=== PATIENT | male | born 1940 | race Caucasian/White ===

== ENCOUNTER → 2020-02-28 10:33 | Outpatient (BNVA) | payer MEDICARE, OTHER, SELFPAY | PROVIDERS: Family Provider Nurse Practitioner; PCP Nurse Practitioner; Visit Provider Nurse Practitioner | DX: E03.8 Other specified hypothyroidism (principal); E11.65 Type 2 diabetes mellitus with hyperglycemia; Z79.4 Long term (current) use of insulin; I10 Essential (primary) hypertension; E78.2 Mixed hyperlipidemia; R39.11 Hesitancy of micturition | CPT/HCPCS: 80053; 80061; 83036; 84443 ==

== ENCOUNTER → 2020-07-23 10:14 | Outpatient (BNVA) | payer MEDICARE, OTHER, SELFPAY | PROVIDERS: Family Provider Nurse Practitioner; PCP Nurse Practitioner; Visit Provider Urology | DX: C67.8 Malignant neoplasm of overlapping sites of bladder; N40.1 Benign prostatic hyperplasia with lower urinary tract symptoms; R35.0 Frequency of micturition; C67.9 Malignant neoplasm of bladder, unspecified | CPT/HCPCS: 81001 ==

== ENCOUNTER → 2020-08-21 12:01 | Outpatient (BNVA) | payer MEDICARE, OTHER, SELFPAY | PROVIDERS: Family Provider Nurse Practitioner; PCP Nurse Practitioner; Visit Provider Nurse Practitioner | DX: E11.65 Type 2 diabetes mellitus with hyperglycemia (principal); Z79.4 Long term (current) use of insulin | CPT/HCPCS: 80053; 80061; 81000; 82043; 83036; 84443 ==

== ENCOUNTER → 2021-03-24 12:14 | Outpatient (BNVA) | payer MEDICARE, OTHER, SELFPAY | PROVIDERS: Family Provider Nurse Practitioner; PCP Nurse Practitioner; Visit Provider Family Medicine | DX: E03.8 Other specified hypothyroidism (principal); E11.65 Type 2 diabetes mellitus with hyperglycemia; E78.2 Mixed hyperlipidemia; I10 Essential (primary) hypertension; R39.11 Hesitancy of micturition; Z79.4 Long term (current) use of insulin | CPT/HCPCS: 80053; 80061; 83036; 84443; 85025 ==

== ENCOUNTER 2021-06-07 11:36 | Emergency (ER) | payer MEDICARE, OTHER, SELFPAY ==
[2021-06-07 11:52] VITALS: BP 158/64; PULSE 81; RESP 15; TEMP 36.8; O2SAT 95; BMI 27.1
--- NOTE | 2021-06-07 12:01 | ECG_ITS ---
[facility] Test Date: 2021-06-07 Pat Name: Norm Dee Department: Room: Gender: Male Clinical Team Lead: : 1940 Requested By: David Perla Order Number: [id number] Shirley MD: Marcus Siddiqui M.D. Measurements Intervals [place] Rate: 71 P: 28 ND: 149 QRS: -21 QRSD: 80 T: 28 QT: 373 QTc: 407 Interpretive Statements SINUS RHYTHM BORDERLINE LEFT AXIS DEVIATION [QRS AXIS < -20] LOW QRS VOLTAGE IN PRECORDIAL LEADS [QRS DEFLECTION < 1.0 mV IN CHEST LEADS] Compared to ECG 12/06/2017 13:18:47 No significant changes Electronically Signed On 06-08-2021 17:09:32 CDT by Marcus Siddiqui M.D. [id number]
[2021-06-07 12:26] VITALS: BP 115/62; PULSE 73; O2SAT 93
--- NOTE | 2021-06-07 12:30 | W.ED.WEAKNES ---
HPI - Weakness General: Chief complaint: Weakness Stated complaint: N/D WEAKNESS, POSS LOW O2 Time Seen by Provider: 06/07/21 11:59 History of Present Illness: HPI Narrative: 80-year-old male presents to the emergency room with planes of weakness and diarrhea generalized fatigue is also a little bit of cough and shortness of breath low-grade fever at home somewhat confused cannot really answer too many questions he denies chest pain does have a history of diabetes mellitus. Not previously been known to have Covid nor is he been vaccinated. MD Complaint: generalized weakness Onset (ago): day(s) Duration: constant Location: generalized Severity: moderate Relieving factors: none Exacerbating factors: none Associated symptoms: Reports decreased appetite, fever(s), myalgias, nausea and short of breath; Denies chest pain, chills, confusion, melena, diaphoresis, dysuria, easy bruising, headache(s), rash, syncope or vomiting Review of Systems Const: Reports: fever(s); Denies: chills or diaphoresis ENMT: Denies: throat pain, ear or mastoid pain, nasal discharge or nasal congestion Card: Denies: chest pain or syncope Resp: Denies: dyspnea, productive cough or non-productive cough GI: Reports: nausea; Denies: vomiting or melena : Denies: dysuria Skin/Breast: Denies: rash or pruritus Neuro: Denies: headache(s) or confusion Micha/Lymph: Denies: easy bruising PFS ED PFSH: Medical History (Updated 06/07/21 @ 15:22 by David Agrawal DO) Adult onset hypothyroidism Benign prostatic hyperplasia with lower urinary tract symptoms Controlled type 2 diabetes mellitus with hyperglycemia, with long-term current use of insulin HTN, goal below 130/80 Malignant neoplasm of overlapping sites of bladder Mixed hyperlipidemia Urinary hesitancy Surgical History History of bladder surgery History of cataract surgery History of hernia repair History of laminectomy Family History Other Cancer Diabetes Hypertension Denies family history of Bleeding disorder Social History Smoking and tobacco status: former smoker Second hand smoke exposure: No Smoking risk assessment/counseling performed?: No Alcohol intake: never Desire information about alcohol rehabilitation?: No Counseling given: No Desire information about substance/drug rehabilitation?: No Counseling given: No Caregiver/support person: No Lives independently: Yes Household members: none Housing: House Marital status: / Current occupational status: retired History of recent travel: No Current gender identity: Male Physical Exam Const: COMMON NORMALS: no acute distress GENERAL APPEARANCE: cooperative and comfortable HENMT: COMMON NORMALS: normocephalic, atraumatic and hearing grossly normal bilaterally HEAD & SCALP: normocephalic and atraumatic Neck/C-Spine: COMMON NORMALS: no JVD Resp: COMMON NORMALS: normal respiratory effort, No retractions, No use of accessory muscles and clear to auscultation bilaterally AUSCULTATION: clear to auscultation bilaterally Cardio: COMMON NORMALS: no JVD, regular rate, regular rhythm and No murmurs present (Cardio) RATE: regular rate RHYTHM: regular rhythm GI: COMMON NORMALS: Soft to palpation and No hepatosplenomegaly present AUSCULTATION: Yes normoactive bowel sounds PALPATION: Yes Soft to palpation, No Tenderness to palpation present (GI), No Guarding due to palpation present (GI) and Yes No hepatosplenomegaly present Extremity: COMMON NORMALS: normal to inspection, capillary refill normal, no clubbing, cyanosis or edema, no calf tenderness and no pedal edema Skin: COMMON NORMALS: no rashes or lesions noted GENERAL SKIN EXAM: no rashes or lesions noted Course Vital Signs: Vital signs: Vital Signs Temperature 98.3 F 06/07/21 11:52 Pulse Rate 73 06/07/21 12:26 Respiratory Rate 15 06/07/21 11:52 Blood Pressure 115/62 06/07/21 12:26 Pulse Oximetry 93 06/07/21 12:26 MDM - Weakness MDM Narrative: Medical decision making narrative: 80 patient has cystitis as well as a left lower lobe infiltrate and still somewhat suspicious of Covid given his onset with diarrhea. We will get a PCR is rapid antigen was negative he is already monitoring his home O2 sats. We will start him on Levaquin which should cover both pneumonia and cystitis if the pneumonia happens to be bacterial. We will contact her when we get his Covid result back any worsening problems return. Lab Data: Labs: Lab Results 06/07/21 06/07/21 06/07/21 Range/Units 12:39 12:39 12:39 WBC 3.1 L (4.0-10.0) 10^3/ uL RBC 4.86 (4.1-5.3) 10^6/u L Hgb 14.3 (11.7-16.6) g/dL Hct 44.1 (42.0-52.0) % MCV 90.7 (80-94) fL MCH 29.4 (28.0-34.0) pg MCHC 32.4 (30.0-36.0) g/dL RDW 14.8 (12.1-15.1) % Plt Count 119 L (130-400) 10^3/c mm MPV 10.2 (7.4-10.4) fL Neut % (Auto) 65.8 % Lymph % (Auto) 25.6 % [place] % (Auto) 8.0 % Eos % (Auto) 0.0 % Baso % (Auto) 0.3 % Neut # (Auto) 2.05 (1.8-7.7) 10^3/u L Lymph # (Auto) 0.8 (0.8-4.8) 10^3/u L [place] # (Auto) 0.3 (0.2-0.9) 10^3/u L Eos # (Auto) 0.0 (0.0-0.8) 10^3/u L Baso # (Auto) 0.0 (0.0-0.1) 10^3/u L Nucleated RBC % (a uto) 0 % Nucleated RBCs # 0.0 /100WBC Sodium 134 L (136-145) mmol/L Potassium 4.2 (3.5-5.1) mmol/L Chloride 98 (98-107) mmol/L Carbon Dioxide 23 (22-29) mmol/L Anion Gap 17.2 (5-19) BUN 31 H (8-23) mg/dL Creatinine 1.7 H (0.7-1.2) mg/dL GFR Calculation Not Reportable Glucose 175 H (65-115) mg/dL Calculated Osmolal ity 289 (285-295) mOsm/k g Lactic Acid 1.1 (0.5-2.2) mmol/L Calcium 8.2 L (8.5-10.5) mg/dL Total Bilirubin 0.5 (0.15-1.2) mg/dL AST 37 (0-40) U/L ALT 23 (0-41) U/L Alkaline Phosphata se 60 (40-130) IU/L Creatine Kinase 141 (39-308) U/L Total Protein 7.1 (6.6-8.7) g/dL Albumin 3.7 (3.5-5.2) g/dL Globulin 3.4 (1.3-4.6) g/dL Lipase 90 H (13-60) U/L Urine Color (Yellow) Urine Appearance (CLEAR) Urine pH (5-7) Ur Specific Gravit y (1.005-1.030) Urine Protein (Negative) Urine Glucose (UA) (Normal) Urine Ketones (Negative) Urine Blood (Negative) Urine Nitrate (Negative) Urine Bilirubin (Negative) Urine Urobilinogen (Negative) mg/dL Ur Leukocyte Komal ase (Negative) Urine RBC (0-2) /hpf Urine WBC (0-5) /hpf Ur Squamous Epith Cells (0-5) /hpf Amorphous Sediment Urine Bacteria (NONE) /hpf SARS-CoV-2 Ag (Rap id) (Negative) 06/07/21 06/07/21 Range/Units 12:39 12:55 WBC (4.0-10.0) 10^3/ uL RBC (4.1-5.3) 10^6/u L Hgb (11.7-16.6) g/dL Hct (42.0-52.0) % MCV (80-94) fL MCH (28.0-34.0) pg MCHC (30.0-36.0) g/dL RDW (12.1-15.1) % Plt Count (130-400) 10^3/c mm MPV (7.4-10.4) fL Neut % (Auto) % Lymph % (Auto) % [place] % (Auto) % Eos % (Auto) % Baso % (Auto) % Neut # (Auto) (1.8-7.7) 10^3/u L Lymph # (Auto) (0.8-4.8) 10^3/u L [place] # (Auto) (0.2-0.9) 10^3/u L Eos # (Auto) (0.0-0.8) 10^3/u L Baso # (Auto) (0.0-0.1) 10^3/u L Nucleated RBC % (a uto) % Nucleated RBCs # /100WBC Sodium (136-145) mmol/L Potassium (3.5-5.1) mmol/L Chloride (98-107) mmol/L Carbon Dioxide (22-29) mmol/L Anion Gap (5-19) BUN (8-23) mg/dL Creatinine (0.7-1.2) mg/dL GFR Calculation Glucose (65-115) mg/dL Calculated Osmolal ity (285-295) mOsm/k g Lactic Acid (0.5-2.2) mmol/L Calcium (8.5-10.5) mg/dL Total Bilirubin (0.15-1.2) mg/dL AST (0-40) U/L ALT (0-41) U/L Alkaline Phosphata se (40-130) IU/L Creatine Kinase (39-308) U/L Total Protein (6.6-8.7) g/dL Albumin (3.5-5.2) g/dL Globulin (1.3-4.6) g/dL Lipase (13-60) U/L Urine Color Yellow (Yellow) Urine Appearance Sl hazy (CLEAR) Urine pH 5 (5-7) Ur Specific Gravit y 1.020 (1.005-1.030) Urine Protein 2+ H (Negative) Urine Glucose (UA) Norm (Normal) Urine Ketones Negative (Negative) Urine Blood 2+ H (Negative) Urine Nitrate Positive H (Negative) Urine Bilirubin Neg (Negative) Urine Urobilinogen Norm (Negative) mg/dL Ur Leukocyte Komal ase Trace H (Negative) Urine RBC 0-4 H (0-2) /hpf Urine WBC 25-40 H (0-5) /hpf Ur Squamous Epith Cells 0-4 H (0-5) /hpf Amorphous Sediment Not Reportable Urine Bacteria 3+ H (NONE) /hpf SARS-CoV-2 Ag (Rap id) Negative (Negative) Discharge Plan Discharge Patient Disposition: Home Clinical Impression: Pneumonia, Cystitis, Suspected 2019-nCoV infection Condition: Stable Prescriptions: New levofloxacin 500 mg tablet 500 mg PO DAILY 7 Days RF: 0 No Action (DME) FreeStyle Lite Strips Strip See Rx Instructions .ROUTE .MEDSUPPLY Qty: 100 RF: 5 metoprolol succinate 50 mg tablet extended release 24 hr 50 mg PO QAM RF: 0 glipizide 10 mg tablet extended release 24hr 10 mg PO QAM RF: 0 tamsulosin 0.4 mg capsule 0.4 mg PO QAM RF: 0 lisinopril 5 mg tablet 5 mg PO QAM RF: 0 levothyroxine 112 mcg tablet 112 mcg PO QAM RF: 0 Crestor 40 mg tablet 40 mg PO QAM RF: 0 Levemir FlexTouch U-100 Insuln 100 unit/mL (3 mL) insulin pen 32 unit SUBCUT QAM RF: 0 Discharge Orders: Discharge ED (Routine); Ordered 06/07/21 Ordered By: David Agrawal Discharge Diet: As Directed Patient Instructions: Opioid Safety Activity Restrictions/Additional Instructions: You were tested for COVID-19. We still suspect you may have it. Monitor your home oxygen saturations if they are consistently below 90% return to the emergency room. Start on oral antibiotic given for the cystitis as well. Coding Level of Care Code ED Meteorological Engineer for Katia Fwanalilia Exam Comprehensive
[2021-06-07 12:47] LABS: Basophils % 0.3 %; Hematocrit 44.1 % (42.0-52.0); Hemoglobin 14.3 g/dL (11.7-16.6); Lymphocytes # 0.8 10^3/uL (0.8-4.8); Lymphocytes % 25.6 %; Mean Corpuscular HGB Conc 32.4 g/dL (30.0-36.0); Mean Corpuscular Hemoglobin 29.4 pg (28.0-34.0); Mean Corpuscular Volume 90.7 fL (80-94); Mean Platelet Volume 10.2 fL (7.4-10.4); Monocytes # 0.3 10^3/uL (0.2-0.9); Neutrophils # 2.05 10^3/uL (1.8-7.7); Neutrophils % 65.8 %; Nucleated Red Blood Cells % 0 %; Platelet Count 119 10^3/cmm (130-400); Red Blood Count 4.86 10^6/uL (4.1-5.3); Red Cell Distribution Width 14.8 % (12.1-15.1); White Blood Count 3.1 10^3/uL (4.0-10.0)
--- NOTE | 2021-06-07 13:08 | XRR_ITS ---
PROCEDURE INFORMATION: Exam: XR Chest Exam date and time: 06/07/2021 1:08 PM Age: 80 years old Clinical indication: Cough and dyspnea; Additional info: Dyspnea/cough TECHNIQUE: Imaging protocol: XR of the chest. Views: 1 view. COMPARISON: CR Chest 1 [place] [id number] 11/13/2017 9:10 PM FINDINGS: Lungs: Left basilar opacity. Pleural spaces: Unremarkable. No pleural effusion. No pneumothorax. Heart/Mediastinum: Unremarkable. No cardiomegaly. Vasculature: Atherosclerotic calcifications at the aortic arch noted. 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 XR/XR chest 1V portable [id number] IMPRESSION: Left basilar opacity suspicious for pneumonia. Nonemergent radiographic follow-up to resolution is suggested to ensure resolution.
[2021-06-07 13:11] LABS: Add Urine Microscopic? YES; Bilirubin Urine Neg (Negative); Blood Urine 2+ (Negative); Glucose Urine UA Norm (Normal); Ketones Urine Negative (Negative); Leukocyte Esterase Urine Trace (Negative); Nitrate Urine Positive (Negative); Protein Urine 2+ (Negative); Urine Appearance SL Hazy (CLEAR); Urine Color Yellow (Yellow); Urobilinogen Urine Norm (Negative); pH Urine 5 (5-7)
[2021-06-07 13:25] LABS: Add Urine Culture? Yes; Bacteria Urine 3+ /hpf; RBC Urine 0-4 /hpf (0-2); Squamous Epithelial Cell Urine 0-4 /hpf (0-5); WBC Urine 25-40 /hpf (0-5)
[2021-06-07 13:26] LABS: Lactic Sepsis W/Reflex 1.1 mmol/L (0.5-2.2)
[2021-06-07 13:28] LABS: Alanine Aminotransferase 23 U/L (0-41); Albumin Level 3.7 g/dL (3.5-5.2); Alkaline Phosphatase 60 IU/L (40-130); Anion Gap 17.2 (5-19); Aspartate Amino Transferase 37 U/L (0-40); Blood Urea Nitrogen 31 mg/dL (8-23); Calcium 8.2 mg/dL (8.5-10.5); Carbon Dioxide 23 mmol/L (22-29); Chloride 98 mmol/L (98-107); Creatine Phosphokinase 141 U/L (39-308); Globulin 3.4 g/dL (1.3-4.6); Glucose 175 mg/dL (65-115); Lipase 90 U/L (13-60); Osmolality Calculated 289 mOsm/kg (285-295); Potassium 4.2 mmol/L (3.5-5.1); SARS Covid-2 Antigen Negative (Negative); Sodium 134 mmol/L (136-145); Total Bilirubin 0.5 mg/dL (0.15-1.2); Total Protein 7.1 g/dL (6.6-8.7)
--- NOTE | 2021-06-07 13:42 | PC.PHAR ---
pt states he takes care of his own medications-pt states he takes something over the counter but is unsure what it is-pt states he only takes his medication in the am-pt states he is suppose to take flomax 0.4mg bid but states she just takes 0.4mg qam
== END 2021-06-07 15:40 | disposition home or self-care (01) ==
PROVIDERS: Emergency Provider Family Medicine
DX: J18.9 Pneumonia, unspecified organism (principal); N30.90 Cystitis, unspecified without hematuria; Z20.822 Contact with and (suspected) exposure to COVID-19; Z79.4 Long term (current) use of insulin; E11.9 Type 2 diabetes mellitus without complications; I10 Essential (primary) hypertension; E78.2 Mixed hyperlipidemia; Z85.51 Personal history of malignant neoplasm of bladder; Z87.891 Personal history of nicotine dependence
CPT/HCPCS: 71045; 80053; 81001; 82550; 83605; 83690; 85025; 87077; 87086; 87186; 87426; 93005; 99283

== ENCOUNTER 2021-06-09 16:09 | Inpatient (IN) | payer MEDICARE, OTHER, SELFPAY ==
[2021-06-09 16:53] VITALS: BP 128/71; PULSE 77; RESP 18; TEMP 36.5; O2SAT 94; BMI 27.1
[2021-06-09 19:56] VITALS: BP 107/75; PULSE 66; RESP 16; TEMP 36.5; O2SAT 95
--- NOTE | 2021-06-09 19:57 | PC.PHAR ---
PT STATED THAT HE TOOK ALL OF HIS MEDICATION TODAY; HOWEVER, HIS FAMILY MEMBER WAS WITH HIM AND HE STATED TO ME THAT HE IS NOT REALLY SURE WHETHER HE TOOK HIS MEDICATION CORRECTLY TODAY OR NOT. HE DOESN'T THINK THE PT WAS TAKING HIS ANTIBIOTIC CORRECTLY EVERY DAY.
[2021-06-09 20:55] VITALS: BP 118/66; PULSE 81; RESP 22; TEMP 37.1; O2SAT 93
--- NOTE | 2021-06-09 20:59 | ECG_ITS ---
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 Measurements Intervals [place] Rate: 65 P: 39 [place]: 154 QRS: -35 QRSD: 83 T: 40 QT: 415 QTc: 433 Interpretive Statements SINUS RHYTHM MARKED LEFT AXIS DEVIATION [QRS AXIS < -30] Poor R wave progression LOW QRS VOLTAGE IN PRECORDIAL LEADS [QRS DEFLECTION < 1.0 mV IN CHEST LEADS] Compared to ECG 06/07/2021 12:07:44 No significant changes Electronically Signed On 06-11-2021 0:29:23 CDT by Michael Meraz M.D. [id number]
--- NOTE | 2021-06-09 21:00 | ED_ITS ---
HPI - Male Genitourinary General: Chief complaint: ER Hold Stated complaint: UTI COMPLICATIONS/UNABLE TO WALK/TROUBLE EATING Time Seen by Provider: 06/09/21 20:39 History of Present Illness: HPI Narrative: Patient is an 80-year-old male comes to the ED with generalized fatigue and weakness. Patient has a past medical history of hypertension, type 2 diabetes, BPH, hypothyroidism And hyperlipidemia. Patient was diagnosed with a UTI approximately 5 days ago and sent home on levofloxacin. Patient has been taking his levofloxacin as directed. Patient's grandson is here as well and is helping provide history. Patient is very independent and lives at home by himself. Grandson said he is very active and he seems to be getting worse over the past couple days. Grandson said patient has not had an appetite and he has only seen patient eat maybe a couple 100 bri worth of food over the past 3 days. Patient says he just does not have an appetite. He describes his weakness is generalized and says his legs and body feels really heavy. Grandson says over the past couple days patient has seemed very weak and can hardly get up and move around. Denies any nausea/vomiting, fevers, chills, chest pain, shortness of breath, abdominal pain, bladder or bowel symptoms. Associated symptoms: Deny dysuria, hematuria, nausea or vomiting Review of Systems Const: Reports: fatigue (generalized weakness); Denies: fever(s) or chills Eyes: Denies: change in vision or eye discomfort ENMT: Denies: throat pain, odynophagia, nasal discharge or nasal congestion Card: Denies: chest pain, palpitations, edema, swelling of feet/ankles, dyspnea on exertion or orthopnea Resp: Denies: dyspnea, productive cough or non-productive cough GI: Denies: abdominal pain, nausea, vomiting, diarrhea, constipation or hem atochezia : Denies: flank pain, difficulty urinating, dysuria or hematuria Musc: Denies: neck pain, back pain or extremity swelling Skin/Breast: Denies: rash or new lesions Neuro: Reports: confusion; Denies: headache(s), numbness in extremities or weakness in extremities PFS ED PFSH: Medical History Adult onset hypothyroidism Benign prostatic hyperplasia with lower urinary tract symptoms Controlled type 2 diabetes mellitus with hyperglycemia, with long-term current use of insulin HTN, goal below 130/80 Malignant neoplasm of overlapping sites of bladder Mixed hyperlipidemia Urinary hesitancy Surgical History History of bladder surgery History of cataract surgery History of hernia repair History of laminectomy Family History Other Cancer Diabetes Hypertension Denies family history of Bleeding disorder Social History Smoking and tobacco status: former smoker Second hand smoke exposure: No Smoking risk assessment/counseling performed?: No Alcohol intake: never Desire information about alcohol rehabilitation?: No Counseling given: No Desire information about substance/drug rehabilitation?: No Counseling given: No Caregiver/support person: No Lives independently: Yes Household members: none Housing: House Marital status: / Current occupational status: retired History of recent travel: No Current gender identity: Male Physical Exam Const: COMMON NORMALS: alert GENERAL APPEARANCE: lethargic ORIENTATION/CONSCIOUSNESS: Yes oriented to person and Yes lethargic; not oriented to place and not oriented to time HENMT: COMMON NORMALS: normocephalic HEAD & SCALP: normocephalic MOUTH: Normal oral and palatal mucosa present THROAT: posterior oropharynx normal and uvula midline Eye: COMMON NORMALS: Equal, round and reactive pupils present PUPIL: Yes Equal, round and reactive pupils present Neck/C-Spine: COMMON NORMALS: supple GENERAL: Yes normal visual inspection Resp: COMMON NORMALS: normal respiratory effort, No retractions, No use of accessory muscles and clear to auscultation bilaterally AUSCULTATION: clear to auscultation bilaterally Cardio: COMMON NORMALS: regular rate, regular rhythm, S1 normal heart sound present, S2 normal heart sound present, No gallops present (Cardio), No clicks present (Cardio), No murmurs present (Cardio) and Peripheral pulses 2+ throughout RATE: regular rate RHYTHM: regular rhythm HEART SOUNDS: S1 normal heart sound present and S2 normal heart sound present PERIPHERAL PULSES: Peripheral pulses 2+ throughout GI: COMMON NORMALS: Normal to inspection, nondistended, normoactive bowel sounds present, Soft to palpation, non-tender and no masses PALPATION: Yes Soft to palpation : COMMON NORMALS: Yes no CVA tenderness BLADDER/KIDNEY EXAM: Yes no CVA tenderness Back/Pelvis: COMMON NORMALS: no CVA tenderness Extremity: COMMON NORMALS: normal to inspection Neuro: COMMON NORMALS: moves all extremities SENSORIUM/ORIENTATION: Yes alert, Yes oriented to person, No oriented to place, No oriented to time and Yes lethargic SPEECH: speech normal GAIT: Yes Other gait observations present (nurse assisted pt to bathroom-reports he is very unsteady/ weak) Skin: GENERAL SKIN EXAM: dry skin Course Consultations: Consultation #1: Contacted Dr. Ryder told her about patient case. She thought of patient was seen to be admitted they could not be admitted on observation other than would need to be admitted to the hospital for a more thorough work-up. Vital Signs: Vital signs: Vital Signs Temperature 98.7 F 06/09/21 20:55 Pulse Rate 51 L 06/09/21 23:00 Respiratory Rate 16 06/09/21 23:00 Blood Pressure 114/69 06/09/21 23:00 Pulse Oximetry 94 06/09/21 23:00 MDM - Male MDM Narrative: Medical decision making narrative: Patient is an 80-year-old male comes to the ED with generalized weakness, fatigue and confusion. Patient has a past medical history of hypertension, type 2 diabetes with controlled with insulin and BPH. Patient was seen here in the ED on June 07 diagnosed with a UTI and sent home on levofloxacin. Patient lives at home alone and does not have somebody who can be at his house constantly for the next couple days. Here in the ED patient appears a little lethargic and confused. He was alert and oriented to person, but struggles answering place and time questions. Rest of a exam was benign. Vitals were stable. Patient's glucose is checked and it was 48. Patient was given 1 g of glucagon and drank some juice. His blood sugar then went up around 101. CBC was unremarkable. Patient's glucose was 40 and creatinine was 1.8 but it was 1.7 when checked back on June 07. Rest of CMP was unremarkable. Chest x-ray showed some Persistent mild left basilar opacity concerning for pneumonia. EKG showed normal sinus rhythm with no ST segment elevation or depression noted. Troponins negative. CT of head showed no acute findings. I talked with Dr. Saldana about patient case and he felt patient needs to be admitted or at least on observation. I contacted Dr. Steven and she recommended patient not be placed on obs and admitted to Hospital. We currently have pt on hold here in the ED until bed opens up in hospital. Lab Data: Labs: Lab Results 06/09/21 06/09/21 06/09/21 Range/Units 20:51 21:02 21:09 WBC 3.5 L (4.0-10.0) 10^3/ uL RBC 4.97 (4.1-5.3) 10^6/u L Hgb 14.4 (11.7-16.6) g/dL Hct 44.9 (42.0-52.0) % MCV 90.3 (80-94) fL MCH 29.0 (28.0-34.0) pg MCHC 32.1 (30.0-36.0) g/dL RDW 14.9 (12.1-15.1) % Plt Count 135 (130-400) 10^3/c mm MPV 10.4 (7.4-10.4) fL Neut % (Auto) 71.9 % Lymph % (Auto) 18.8 % [place] % (Auto) 9.0 % Eos % (Auto) 0.0 % Baso % (Auto) 0.0 % Neut # (Auto) 2.49 (1.8-7.7) 10^3/u L Lymph # (Auto) 0.7 L (0.8-4.8) 10^3/u L [place] # (Auto) 0.3 (0.2-0.9) 10^3/u L Eos # (Auto) 0.0 (0.0-0.8) 10^3/u L Baso # (Auto) 0.0 (0.0-0.1) 10^3/u L Nucleated RBC % (a uto) 0 % Nucleated RBCs # 0.0 /100WBC Sodium (136-145) mmol/L Potassium (3.5-5.1) mmol/L Chloride (98-107) mmol/L Carbon Dioxide (22-29) mmol/L Anion Gap (5-19) BUN (8-23) mg/dL Creatinine (0.7-1.2) mg/dL GFR Calculation Glucose (65-115) mg/dL POC Glucose 48 L (70-110) mg/dL Calculated Osmolal ity (285-295) mOsm/k g Calcium (8.5-10.5) mg/dL Total Bilirubin (0.15-1.2) mg/dL AST (0-40) U/L ALT (0-41) U/L Alkaline Phosphata se (40-130) IU/L Troponin T Baselin e (0-15) ng/L Troponin T 120 Min [place] (0-15) ng/L Delta Troponin T (0-10) ABS# Total Protein (6.6-8.7) g/dL Albumin (3.5-5.2) g/dL Globulin (1.3-4.6) g/dL Lipase (13-60) U/L Urine Color Yellow (Yellow) Urine Appearance Clear (CLEAR) Urine pH 5 (5-7) Ur Specific Gravit y 1.020 (1.005-1.030) Urine Protein 1+ H (Negative) Urine Glucose (UA) Norm (Normal) Urine Ketones Negative (Negative) Urine Blood 2+ H (Negative) Urine Nitrate Negative (Negative) Urine Bilirubin Neg (Negative) Urine Urobilinogen Norm (Negative) mg/dL Ur Leukocyte Komal ase Negative (Negative) Urine RBC 0-4 H (0-2) /hpf Urine WBC None (0-5) /hpf Ur Squamous Epith Cells 0-4 H (0-5) /hpf Amorphous Sediment Not Reportable Urine Bacteria 1+ H (NONE) /hpf Coarse Granular Ca sts 0-4 H /lpf Urine Mucus Trace /hpf 06/09/21 06/09/21 06/09/21 Range/Units 21:09 21:09 21:40 WBC (4.0-10.0) 10^3/ uL RBC (4.1-5.3) 10^6/u L Hgb (11.7-16.6) g/dL Hct (42.0-52.0) % MCV (80-94) fL MCH (28.0-34.0) pg MCHC (30.0-36.0) g/dL RDW (12.1-15.1) % Plt Count (130-400) 10^3/c mm MPV (7.4-10.4) fL Neut % (Auto) % Lymph % (Auto) % [place] % (Auto) % Eos % (Auto) % Baso % (Auto) % Neut # (Auto) (1.8-7.7) 10^3/u L Lymph # (Auto) (0.8-4.8) 10^3/u L [place] # (Auto) (0.2-0.9) 10^3/u L Eos # (Auto) (0.0-0.8) 10^3/u L Baso # (Auto) (0.0-0.1) 10^3/u L Nucleated RBC % (a uto) % Nucleated RBCs # /100WBC Sodium 136 (136-145) mmol/L Potassium 4.0 (3.5-5.1) mmol/L Chloride 102 (98-107) mmol/L Carbon Dioxide 22 (22-29) mmol/L Anion Gap 16.0 (5-19) BUN 37 H (8-23) mg/dL Creatinine 1.8 H (0.7-1.2) mg/dL GFR Calculation Not Reportable Glucose 40 L (65-115) mg/dL POC Glucose 105 (70-110) mg/dL Calculated Osmolal ity 287 (285-295) mOsm/k g Calcium 8.5 (8.5-10.5) mg/dL Total Bilirubin 0.5 (0.15-1.2) mg/dL AST 37 (0-40) U/L ALT 19 (0-41) U/L Alkaline Phosphata se 69 (40-130) IU/L Troponin T Baselin e 22 H (0-15) ng/L Troponin T 120 Min [place] (0-15) ng/L Delta Troponin T (0-10) ABS# Total Protein 7.0 (6.6-8.7) g/dL Albumin 3.7 (3.5-5.2) g/dL Globulin 3.3 (1.3-4.6) g/dL Lipase 79 H (13-60) U/L Urine Color (Yellow) Urine Appearance (CLEAR) Urine pH (5-7) Ur Specific Gravit y (1.005-1.030) Urine Protein (Negative) Urine Glucose (UA) (Normal) Urine Ketones (Negative) Urine Blood (Negative) Urine Nitrate (Negative) Urine Bilirubin (Negative) Urine Urobilinogen (Negative) mg/dL Ur Leukocyte Komal ase (Negative) Urine RBC (0-2) /hpf Urine WBC (0-5) /hpf Ur Squamous Epith Cells (0-5) /hpf Amorphous Sediment Urine Bacteria (NONE) /hpf Coarse Granular Ca sts /lpf Urine Mucus /hpf 06/09/21 06/09/21 06/10/21 Range/Units 23:04 23:54 02:26 WBC (4.0-10.0) 10^3/ uL RBC (4.1-5.3) 10^6/u L Hgb (11.7-16.6) g/dL Hct (42.0-52.0) % MCV (80-94) fL MCH (28.0-34.0) pg MCHC (30.0-36.0) g/dL RDW (12.1-15.1) % Plt Count (130-400) 10^3/c mm MPV (7.4-10.4) fL Neut % (Auto) % Lymph % (Auto) % [place] % (Auto) % Eos % (Auto) % Baso % (Auto) % Neut # (Auto) (1.8-7.7) 10^3/u L Lymph # (Auto) (0.8-4.8) 10^3/u L [place] # (Auto) (0.2-0.9) 10^3/u L Eos # (Auto) (0.0-0.8) 10^3/u L Baso # (Auto) (0.0-0.1) 10^3/u L Nucleated RBC % (a uto) % Nucleated RBCs # /100WBC Sodium (136-145) mmol/L Potassium (3.5-5.1) mmol/L Chloride (98-107) mmol/L Carbon Dioxide (22-29) mmol/L Anion Gap (5-19) BUN (8-23) mg/dL Creatinine (0.7-1.2) mg/dL GFR Calculation Glucose (65-115) mg/dL POC Glucose 93 45 L (70-110) mg/dL Calculated Osmolal ity (285-295) mOsm/k g Calcium (8.5-10.5) mg/dL Total Bilirubin (0.15-1.2) mg/dL AST (0-40) U/L ALT (0-41) U/L Alkaline Phosphata se (40-130) IU/L Troponin T Baselin e (0-15) ng/L Troponin T 120 Min [place] 22.96 H (0-15) ng/L Delta Troponin T 0.96 (0-10) ABS# Total Protein (6.6-8.7) g/dL Albumin (3.5-5.2) g/dL Globulin (1.3-4.6) g/dL Lipase (13-60) U/L Urine Color (Yellow) Urine Appearance (CLEAR) Urine pH (5-7) Ur Specific Gravit y (1.005-1.030) Urine Protein (Negative) Urine Glucose (UA) (Normal) Urine Ketones (Negative) Urine Blood (Negative) Urine Nitrate (Negative) Urine Bilirubin (Negative) Urine Urobilinogen (Negative) mg/dL Ur Leukocyte Komal ase (Negative) Urine RBC (0-2) /hpf Urine WBC (0-5) /hpf Ur Squamous Epith Cells (0-5) /hpf Amorphous Sediment Urine Bacteria (NONE) /hpf Coarse Granular Ca sts /lpf Urine Mucus /hpf Imaging Data: CT Head: Attestation: I personally reviewed and interpreted this imaging study as follows: Radiologist's impression: [address] [address] [address] Scan Report Signed Patient: Norm Dee Unit #: [id number] : 1940 Age/Sex: 80 / M ADM Date: 06/09/21 Loc: ER Room/Bed: Attending Dr: Ordering Provider/Ordering MD: Simone Bhatt Date of Service: 06/09/21 Procedure(s): CT head wo con* [id number] Accession Number(s): [id number] Report Number: [id number] PROCEDURE INFORMATION: Exam: CT Head Without Contrast Exam date and time: 06/09/2021 8:59 PM Age: 80 years old Clinical indication: Altered mental status/memory loss; Additional info: Confusion, generalized weakness TECHNIQUE: Imaging protocol: Computed tomography of the head without contrast. Radiation optimization: All CT scans at this facility use at least one of these dose optimization techniques: automated exposure control; mA and/or kV adjustment per patient size (includes targeted exams where dose is matched to clinical indication); or iterative reconstruction. COMPARISON: CT head wo con* [id number] 10/26/2017 2:57 PM RADIATION DOSE METRICS: Total DLP (mGy-cm): 1517.81 FINDINGS: Brain: There is mild parenchymal atrophy and chronic small vessel disease. Old left basal ganglia lacunar infarcts. No acute infarct or hemorrhage. Cerebral ventricles: No ventriculomegaly. Paranasal sinuses: Paranasal sinuses are clear. No air-fluid level. Mastoid air cells: Visualized mastoid air cells are clear. Bones/joints: No calvarial or skull base fracture. Soft tissues: Unremarkable. CT/CT head wo con* [id number] IMPRESSION: 1. No acute infarct or hemorrhage. 2. No calvarial or skull base fracture. 3. Mild parenchymal atrophy and chronic small vessel disease. 4. Old left basal ganglia lacunar infarcts. Radiation Dose CTDIVOL = (mGy): DLP = 1517.81 (mGy-cm) Dictated By: Tristan Cruz Signed By: Tristan Cruz Signed Date/Time: 06/09/212258 DD/ 56 CXR: Attestation: I personally reviewed and interpreted this imaging study as follows: Radiologist's impression: [address] [address] XRay Report Signed Patient: Norm Dee Unit #: [id number] : 1940 Age/Sex: 80 / M ADM Date: 06/09/21 Loc: ER Room/Bed: Attending Dr: Ordering Provider/Ordering MD: Simone Bhatt Date of Service: 06/09/21 Procedure(s): XR chest 1V portable [id number] Accession Number(s): [id number] Report Number: [id number] PROCEDURE INFORMATION: Exam: XR Chest Exam date and time: 06/09/2021 8:59 PM Age: 80 years old Clinical indication: Other: Weakness TECHNIQUE: Imaging protocol: XR of the chest. Views: 1 view. COMPARISON: CR (CHEST, ) 06/07/2021 1:14 PM FINDINGS: Lungs: Persistent mild left basilar opacity concerning for pneumonia. Pleural spaces: Unremarkable. No pleural effusion. No pneumothorax. Heart/Mediastinum: Unremarkable. No cardiomegaly. Bones/joints: Unremarkable. XR/XR chest 1V portable [id number] IMPRESSION: Persistent mild left basilar opacity concerning for pneumonia. Dictated By: Tristan Cruz Signed By: Tristan Cruz Signed Date/Time: 06/09/212256 DD/ 54 EKG Data: EKG 1: Attestation: I personally reviewed and interpreted this EKG as follows: EKG Data: 06/09/21 Interpretation: Normal sinus rhythm, 65 bpm, no ST segment elevation or depression seen. Discharge Plan Discharge Admit Provider: Brittni Ryder Condition: Stable Coding Level of Care Code ED Manager for Chg Fwd Exam Comprehensive
[2021-06-09 21:25] LABS: Hematocrit 44.9 % (42.0-52.0); Hemoglobin 14.4 g/dL (11.7-16.6); Lymphocytes # 0.7 10^3/uL (0.8-4.8); Lymphocytes % 18.8 %; Mean Corpuscular HGB Conc 32.1 g/dL (30.0-36.0); Mean Corpuscular Volume 90.3 fL (80-94); Mean Platelet Volume 10.4 fL (7.4-10.4); Monocytes # 0.3 10^3/uL (0.2-0.9); Neutrophils # 2.49 10^3/uL (1.8-7.7); Neutrophils % 71.9 %; Nucleated Red Blood Cells % 0 %; Platelet Count 135 10^3/cmm (130-400); Red Blood Count 4.97 10^6/uL (4.1-5.3); Red Cell Distribution Width 14.9 % (12.1-15.1); White Blood Count 3.5 10^3/uL (4.0-10.0)
[2021-06-09 21:34] LABS: Add Urine Culture? No; Bacteria Urine 1+ /hpf; Bilirubin Urine Neg (Negative); Blood Urine 2+ (Negative); Coarse Granular Casts Urine 0-4 /lpf; Glucose Urine UA Norm (Normal); Ketones Urine Negative (Negative); Leukocyte Esterase Urine Negative (Negative); Mucus Urine TRACE /hpf; Nitrate Urine Negative (Negative); Protein Urine 1+ (Negative); RBC Urine 0-4 /hpf (0-2); Squamous Epithelial Cell Urine 0-4 /hpf (0-5); Urine Appearance Clear (CLEAR); Urine Color Yellow (Yellow); Urobilinogen Urine Norm (Negative); pH Urine 5 (5-7)
[2021-06-09 21:41] LABS: Troponin(5th) Baseline 22 ng/L (0-15)
[2021-06-09 21:44] LABS: Glucose Point of Care 105 mg/dL (70-110)
[2021-06-09 21:44] LABS: Glucose Point of Care 48 mg/dL (70-110)
[2021-06-09 21:58] LABS: Alanine Aminotransferase 19 U/L (0-41); Albumin Level 3.7 g/dL (3.5-5.2); Alkaline Phosphatase 69 IU/L (40-130); Aspartate Amino Transferase 37 U/L (0-40); Blood Urea Nitrogen 37 mg/dL (8-23); Calcium 8.5 mg/dL (8.5-10.5); Carbon Dioxide 22 mmol/L (22-29); Chloride 102 mmol/L (98-107); Globulin 3.3 g/dL (1.3-4.6); Glucose 40 mg/dL (65-115); Lipase 79 U/L (13-60); Osmolality Calculated 287 mOsm/kg (285-295); Sodium 136 mmol/L (136-145); Total Bilirubin 0.5 mg/dL (0.15-1.2)
--- NOTE | 2021-06-09 22:59 | ECG_ITS ---
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 Measurements Intervals [place] Rate: 64 P: 50 MS: 154 QRS: -27 QRSD: 86 T: 33 QT: 410 QTc: 425 Interpretive Statements SINUS RHYTHM BORDERLINE LEFT AXIS DEVIATION [QRS AXIS < -20] LOW QRS VOLTAGE IN PRECORDIAL LEADS [QRS DEFLECTION < 1.0 mV IN CHEST LEADS] Compared to ECG 06/09/2021 21:08:27 No significant changes Electronically Signed On 06-11-2021 0:34:38 CDT by Michael Meraz M.D. [email or web address]
[2021-06-09 23:00] VITALS: BP 114/69; PULSE 51; RESP 16; O2SAT 94
[2021-06-09 23:32] LABS: Troponin 5 2HR 22.96 ng/L (0-15); Troponin 5 2HR Delta 0.96 ABS# (0-10)
[2021-06-09 23:59] LABS: Glucose Point of Care 93 mg/dL (70-110)
[2021-06-10] VITALS (8 sets, daily range): BP systolic 101–159; BP diastolic 60–75; PULSE 63–89; RESP 16–18; TEMP 36.6–37.1; O2SAT 91–96
[2021-06-10 02:28] LABS: Glucose Point of Care 45 mg/dL (70-110)
[2021-06-10] MEDS: dextrose 50% syringe 50 mL IVP (02:31)
[2021-06-10 02:54] LABS: Glucose Point of Care 172 mg/dL (70-110)
--- NOTE | 2021-06-10 02:59 | ECG_ITS ---
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 Measurements Intervals [place] Rate: 66 P: 57 CO: 155 QRS: -15 QRSD: 82 T: 38 QT: 406 QTc: 426 Interpretive Statements SINUS RHYTHM LOW QRS VOLTAGE IN PRECORDIAL LEADS [QRS DEFLECTION < 1.0 mV IN CHEST LEADS] SEPTAL MYOCARDIAL INFARCTION [40+ ms Q WAVE IN V1/V2], OF INDETERMINATE AGE Compared to ECG 06/09/2021 23:25:01 Myocardial infarct finding now present Electronically Signed On 06-11-2021 0:35:14 CDT by Michael Meraz M.D. [id number]
[2021-06-10 03:18] LABS: Troponin 5 6HR 23.92 ng/L (0-15); Troponin 5 6HR Delta 1.92 ng/L (0-12)
--- NOTE | 2021-06-10 03:49 | PM.HP ---
Providers/Chief Complaint Admitting Physician: Brittni Ryder MD Primary Care Provider: Samantha Berkowitz MD Chief Complaint: UTI COMPLICATIONS/UNABLE TO WALK/TROUBLE EATING History of Present Illness Norm Dee is a 80 year old male with PMH as below brought by his grandson today for altered mental status, confusion, difficulty ambulating and unsteady gait. Family not at bedside currently given late hour. History obtained by talk to ER PA and patient. Patient reports having had diarrhea for about 3 weeks now along with c/o vomiting, poor po intake and appetite. He was recently seen in the ER 3 days ago for these symptoms, Rapid Covid ag was negative, he was found to have E.coli UTI and left basilar consolidation for which he was started on Levofloxacin. States that diarrhea is getting better. 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 Denies any cough, chest pain, dyspnea. Saturating 94% on room air. He was hypoglycemic to 47 upon hospital admission, improved with dextrose. Patient lives alone, uses insulin, acknowldges that he needs help with medication management. Review of Systems General: Reports: 10 or more systems reviewed and unremarkable except in HPI and below Const: Denies: fever(s), chills or body aches Eyes: Denies: change in vision, blurry vision or photophobia ENMT: Reports: hoarseness; Denies: throat pain, enlarged tonsils, odynophagia or nasal congestion Card: Denies: chest pain, palpitations, irregular heart rhythm, edema, swelling of feet/ankles, lightheadedness, pre-syncope, dyspnea on exertion or orthopnea Resp: Denies: dyspnea, productive cough, non-productive cough, wheezing, stridor, pain on inspiration, change in phlegm color, hemoptysis or chest congestion GI: Reports: nausea, vomiting and diarrhea; Denies: abdominal pain, hematemesis, coffee ground emesis, dysphagia, heartburn, constipation, GI cramping, change in stool character, hematochezia or melena : Denies: flank pain, dysuria, urinary frequency, urinary urgency, urinary hesitancy or hematuria Musc: Denies: neck pain, back pain, extremity pain, joint swelling, joint warmth or deformity Neuro: Denies: headache(s), numbness in extremities, weakness in extremities, sensory changes, difficulty walking, frequent falls, dizziness, vertigo, behavioral changes, Slurred speech present or seizure-like activity Psych: Denies: anxiety, depression, suicidal ideation or homicidal ideation Endo: Denies: polyuria, polydipsia, tired all the time, cold intolerance or hot flashes Micha/Lymph: Denies: easy bruising or easy bleeding Medications/Allergies Home Medications Medication Instructions Recorded Confirmed Last Taken Type blood sugar diagnostic #100 each 08/21/20 06/09/21 Unknown Rx glipizide 10 mg PO DAILY 06/07/21 06/09/21 06/09/21 History insulin detemir U-100 [Levemir 32 unit SUBCUT DAILY 06/07/21 06/09/21 06/09/21 History FlexTouch U-100 Insuln] levofloxacin 500 mg PO DAILY 7 Days tab 06/07/21 06/09/21 06/09/21 Rx levothyroxine 112 mcg PO DAILY 06/07/21 06/09/21 06/09/21 History lisinopril 5 mg PO DAILY 06/07/21 06/09/21 06/09/21 History metoprolol succinate 50 mg PO DAILY 06/07/21 06/09/21 06/09/21 History rosuvastatin [Crestor] 40 mg PO DAILY 06/07/21 06/09/21 06/09/21 History tamsulosin 0.4 mg PO DAILY 06/07/21 06/09/21 06/09/21 History Allergies Allergy/AdvReac Type Severity Reaction Status Date / Time No Known Allergies Allergy Verified 06/09/21 16:56 PFSH Acute PFSH: Medical History (Updated 06/10/21 @ 05:52 by Brittni Ryder MD) Adult onset hypothyroidism Benign prostatic hyperplasia with lower urinary tract symptoms Controlled type 2 diabetes mellitus with hyperglycemia, with long-term current use of insulin HTN, goal below 130/80 Malignant neoplasm of overlapping sites of bladder Mixed hyperlipidemia Urinary hesitancy Surgical History History of bladder surgery History of cataract surgery History of hernia repair History of laminectomy Family History Other Cancer Diabetes Hypertension Denies family history of Bleeding disorder Social History Smoking and tobacco status: former smoker Second hand smoke exposure: No Smoking risk assessment/counseling performed?: No Alcohol intake: never Desire information about alcohol rehabilitation?: No Counseling given: No Desire information about substance/drug rehabilitation?: No Counseling given: No Caregiver/support person: No Lives independently: Yes Household members: none Housing: House Marital status: / Current occupational status: retired History of recent travel: No Current gender identity: Male Vitals/I&O/Wt Last Vital Signs Temp 98.7 F 06/09/21 20:55 Pulse 51 L 06/09/21 23:00 Resp 16 06/09/21 23:00 BP 114/69 06/09/21 23:00 Pulse Ox 94 06/09/21 23:00 Weight last 48 hrs Weight 90.718 kg Physical Exam Narrative: EXAM NARRATIVE: General: No acute distress, AO x3 HEENT: PERRLA, pupils bilaterally equal and reactive, pallors not present Chest: Normal vesicular breath sounds, no added sounds, equal good air entry bilaterally CVS: S1-S2 regular, no murmurs, no tachycardia, no gallops, no rubs Abdomen: Soft, nontender, no organomegaly, bowel sounds present Neuro: No focal deficits, no facial deformity, AO x3, power 5/5 in all limbs Extremities: no edema, cyanosis or clubbing Data : 06/09/21 21:09 06/09/21 21:09 A&P Assessment and plan (1) Altered mental status: likely related to acute hypoglycemia vs metabolic encephalopathy Currently patient is alert awake and oriented, though takes time to respond, appears dehydrated Attempt to ascertain baseline with family in morning Status: Acute Qualifiers: Altered mental status type: transient alteration of awareness Qualified Code(s): R40.4 - Transient alteration of awareness (2) Hypoglycemia: now resolved after Dextrose iv May be related to incorrect insulin use vs OHAs check Hba1c with am labs check TSH, random cortisol Reports poor po intake, nausea and diarrhea which are likely contributing hold insulin and glipizide patient appears dehydrated, started on D5NS Status: Acute (3) Cystitis: continue levaquin UA currently with no WBC, no LA Status: Acute (4) Pneumonia: currently on levaquin, check procal saturating well on RA Status: Acute Qualifiers: Laterality: left Lung location: lower lobe of lung Pneumonia type: due to unspecified organism Qualified Code(s): J18.9 - Pneumonia, unspecified organism (5) Diarrhea: CT abdomen C diff Pcr, enteric bacterial and parasite panel Status: Acute Attestations Medical Necessity Statement*: >2midnight anticipated for above defined care Coding Level of Care Code Acute Farm Implement Mechanic for Chg Fwd Diagnoses Altered mental status R40.4 Altered mental status type: transient alteration of awareness Hypoglycemia E16.2 Cystitis N30.90 Pneumonia J18.9 Laterality: left Lung location: lower lobe of lung Pneumonia type: due to unspecified organism Diarrhea R19.7
[2021-06-10] MEDS: dextrose 5%-sod chloride 0.9% 1,000 ML 75 ML IV ×2 (04:15→17:00)
[2021-06-10 04:18] LABS: T3 Free 1.6 PG/ML (2.0-4.4); Thyroid Stimulating Hormone 0.42 uIU/mL (0.27-4.20)
[2021-06-10 04:19] LABS: Cortisol Random 18.86 ug/dL (2.47-19.5)
[2021-06-10 04:51] LABS: Procalcitonin 0.39 ng/mL (0-0.5)
[2021-06-10 04:55] LABS: Estmated Average Glucose 169; Hemoglobin A1C 7.5 % (4.0-6.0)
[2021-06-10 06:26] LABS: Glucose Point of Care 84 mg/dL (70-110)
--- NOTE | 2021-06-10 07:54 | CT_ITS ---
WS: [id number] CT ABDOMEN PELVIS TECHNIQUE: Noncontrast CT of the abdomen and pelvis with coronal and sagittal reformatted images. CLINICAL INFORMATION: diarrhea x 3 weeks COMPARISON: September 2017 DLP: 1742.[address] scans at [facility] use at least one of these dose optimization techniques: automat ed exposure control; mA and/or kV adjustment per patient size (includes targeted exams where dose is matched to clinical indication); or iterative reconstruction. FINDINGS: Noncontrast liver is normal. Cholelithiasis. Small esophageal hiatal hernia. Noncontrast spleen is no rmal. Patchy groundglass infiltrates in the lung bases and right middle lobe. Fatty atrophy of the pa ncreas. Normal stomach and proximal duodenum. No evidence of high-grade small or large bowel obstruct ion. Adrenal glands are normal. Bilateral renal cortical atrophy. Small bilateral renal cysts. Exophytic l eft lower pole renal lesion with a small septation measuring 2.6 cm. This is similar in appearance to 2017 with increased attenuation. Normal caliber abdominal aorta. Aortic calcification. Slightly ectatic distal abdominal aorta measuri ng 2.2 x 2.1 cm. Normal sigmoid colon. Air distended transverse colon. Normal appendix in the right l ower quadrant. Urine distended bladder. Enlarged prostate measuring 4.6 CM. Fat-containing left inguinal hernia. No abdominal or pelvic lymphadenopathy. No inguinal lymphadenopathy. Small amount of fluid along the rig ht proximal inguinal canal unchanged since 2017. Chronic compression deformities of L3 and L4. CT/CT abdomen pelvis con [id number] IMPRESSION: 1. Patchy partially visualized groundglass infiltrates in the lower lobes, rig ht middle lobe. This is nonspecific but recommend correlation for COVID 19 pneu monia. 2. Cholelithiasis. 3. Small esophageal hiatal hernia. 4. Exophytic left lower pole renal lesion with increased attenuation measuring 2.6 cm. This is unchanged since 2017 and could be followed up with ultrasound to assess solid versus cystic lesion. 5. Enlarged prostate measuring 4.6 CM. 6. Fat-containing left inguinal hernia. 7. No evidence of high-grade small or large bowel obstruction.
[2021-06-10] MEDS: lisinopril 5 mg Tablet PO (08:49)
[2021-06-10] MEDS: levoFLOXacin 500 mg Tablet PO (08:49)
[2021-06-10] MEDS: tamsulosin 0.4 mg Capsule PO (08:50)
[2021-06-10] MEDS: levothyroxine 112 mcg Tablet PO (08:50)
[2021-06-10] MEDS: atorvastatin 40 mg Tablet 80 MG PO (08:50)
--- NOTE | 2021-06-10 10:41 | PC.CHAP ---
Pastoral Care Encounter/Spiritual Assessment Type of Contact [] Declined lap winding machine operator visit [] Patient/Family/Request visit [] Outpatient visit [] Follow-up visit [] Physician referral [] Code/Alert [x] Routine visit [] Staff referral [] Actively dying [x] Patient sleeping [] Family support [] [] Out of room [] Palliative care [] [] Receiving care in room [] Pre-surgical visit [] Trauma [] Long length of stay [] ICU visit [] Other: Relational/Emotional Strength [] Patient feels connected with others/family/visitors/staff [] Distress [] Loneliness/isolation [] Abandonment Spirituality of Patient [] Person of Betty [] Attends Lutheran of their Betty [] Believes in Prayer [] Reads Bible or Rastafarian materials [] There are Spiritual issues to be addressed [employer] [place] Interventions [] Prayer [] Active listening [] Non-anxious presence [] Spiritual/emotional support [] Crisis/trauma care [] Spiritual counseling [] Bereavement support [] Provided bereavement packet [] Provided Bible/devotional materials [] Provided toy/stuffed animal, coloring book to patient or family member [] Provided Communion [] Anointing/[place] [] Salvation [] Completed spiritual assessment [] Other: Impact on Illness or Injury [] Angry [] Fearful [] Anxious [] Often cries [] Exhaustion [] Unable to work [] Unable to attend tenriism [] Unable to walk/stand [] Unable to read [] Unable to drive [] Unable to eat/drink [] Unable to sleep [] Unable to be with family [] Patient intubated [] Other: Summary Time spent with patient 1 minute
--- NOTE | 2021-06-10 10:42 | P.PN_ITS ---
Subjective Subjective: Interval history: Patient was seen this afternoon. He was sitting in a chair, and stated that he was tired of sitting in the chair, and would like to get back into bed. He complained of feeling nauseous, but denied chest pain, shortness of breath, fever, chills. Vitals/I&O/Wt Last Vital Signs Temp 98.8 F 06/10/21 07:21 Pulse 74 06/10/21 07:21 Resp 17 06/10/21 07:21 BP 110/62 06/10/21 07:21 Pulse Ox 91 06/10/21 07:21 06/09/21 06/10/21 06/10/21 22:59 06:59 14:59 Intake Total 900 / 900 600 / 600 Balance 900 / 900 600 / 600 Weight last 48 hrs Weight 90.718 kg Physical Exam Const: COMMON NORMALS: alert GENERAL APPEARANCE: cooperative, ill appearing and frail appearing ORIENTATION/CONSCIOUSNESS: Yes awake HENMT: COMMON NORMALS: normocephalic, atraumatic, external ears normal and Normal external nose present HEAD & SCALP: normocephalic and atraumatic FACE & SINUS: normal facial exam NOSE: Normal external nose present EXTERNAL EAR: Yes external ears normal Eye: COMMON NORMALS: Equal, round and reactive pupils present and conjunctivae normal CONJUNCTIVA: Yes conjunctivae normal PUPIL: Yes Equal, round and reactive pupils present EOM: No EOM abnormal Neck/C-Spine: COMMON NORMALS: Thyroid normal GENERAL: Yes trachea midline, Yes anterior neck swelling and No lymphadenopathy THYROID: Thyroid normal Resp: EFFORT & INSPECTION: Yes able to speak in complete sentences Cardio: COMMON NORMALS: regular rate and regular rhythm RATE: regular rate RHYTHM: regular rhythm HEART SOUNDS: no click, no gallops, no murmurs and no rubs GI: COMMON NORMALS: Soft to palpation and No hepatosplenomegaly present AU SCULTATION: Yes normoactive bowel sounds PALPATION: Yes Soft to palpation, No Tenderness to palpation present (GI), No Guarding due to palpation present (GI), No Rigid due to palpation, Yes No hepatosplenomegaly present and No Rebound tenderness present Extremity: COMMON NORMALS: no clubbing, cyanosis or edema Neuro: SENSORIUM/ORIENTATION: Yes alert CRANIAL NERVES: Yes CN normal except as noted SPEECH: speech normal GAIT: Yes Normal gait present SENSORY EXAM: Yes Normal double simultaneous stimulation for sensation MOTOR EXAM: 5/5 motor strength present throughout Psych: COMMON NORMALS: speech normal ATTITUDE: Yes calm and Yes Withdrawn affect present SPEECH: Yes normal speech Skin: COMMON NORMALS: no rashes or lesions noted GENERAL SKIN EXAM: no rashes or lesions noted Data : 06/09/21 21:09 06/09/21 21:09 Micro: Microbiology 06/10/21 09:40 Blood Culture - Preliminary Blood SPECIMEN COLLECTED 06/10/21 09:38 Blood Culture - Preliminary Blood SPECIMEN COLLECTED A&P Assessment and plan (1) Altered mental status: Status: Acute Qualifiers: Altered mental status type: transient alteration of awareness Qualified Code(s): R40.4 - Transient alteration of awareness (2) Hypoglycemia: Status: Acute (3) Cystitis: Status: Acute (4) Diarrhea: Status: Acute (5) Pneumonia: Status: Acute Qualifiers: Laterality: left Lung location: lower lobe of lung Pneumonia type: due to unspecified organism Qualified Code(s): J18.9 - Pneumonia, unspecified organism (6) Adult onset hypothyroidism: Status: Chronic (7) HTN, goal below 130/80: Status: Chronic (8) Controlled type 2 diabetes mellitus with hyperglycemia, with long-term current use of insulin: Status: Chronic (9) Benign prostatic hyperplasia with lower urinary tract symptoms: Status: Acute Qualifiers: Lower urinary tract symptom detail: urinary frequency Qualified Code(s): N40.1 - Benign prostatic hyperplasia with lower urinary tract symptoms; R35.0 - Frequency of micturition (10) Suspected 2019-nCoV infection: Status: Acute (11) Malignant neoplasm of overlapping sites of bladder: Status: Acute (12) Urinary hesitancy: Status: Chronic Additional A&P Information Mr. Zheng is an 80yo man w/ IDDM2, HTN, HLD, CKD stage III, h/o bladder transitional cell carcinoma s/p fulguration, and hypothyroidism, who represented to the ED on 06/09/2021 w/ complaints of generalized fatigue and weakness. The patient initially presented to the ED on 06/07/2021 with complaints of weakness, diarrhea, generalized fatigue, cough shortness of breath and low-grade fever at home. He was noted to be confused at the time and could not answer too many questions. A CXR was done at that time, that showed a left basilar opacity concerning for pneumonia. UA was concerning for UTI. A rapid COVID-19 test was done, that was negative. Discharged on levofloxacin 500 mg daily for the next 7 days, with the concern that he may still be Covid positive. It was unclear at the time, that he had ever been vaccinated. He represented on 06/09, where he was noted to be hypoglycemic to 40, his UA still concerning for UTI, and his CXR is still showing a mild persistent left basilar opacity concerning for pneumonia. A head CT was done that showed no acute infarct or hemorrhage, but did show old left basal ganglia lacunar infarcts.A CT abdomen and pelvis was done for his complaints of diarrhea, that showed patchy partially visualized groundglass infiltrates in the lower lobes & RML, concerning for COVIID-19 pneumonia. #AMS (Confusion) - Concern for Acute Metabolic encephalopathy. Have to find her baseline from family members. Trop T wnl. # Suspicion for COVID-19 pneumonia - Will order COVID-19 PCR test. # Hypoglycemia # IDDM2 - Improved. Continued BG monitoring. Random cortisol level wnl. Held anti hypoglycemics for now. On d5 1/2 NS for now. # Hypothyroidism - TSH wnl, but could likely afford slight readjustment. Defer to his PCP. # Diarrhea - Stool studies (C diff/ enteric pathogen panel) pending # Cystitis - Continue Levofloxacin # Pneumonia - Continue Levofloxacin. Procalcitonin level wnl. # chronic CKD III - Continue monitoring #BPH: On Tamsulosin #HTN: Held BP meds of metoprolol & Lisinopril for now. DVT ppx: Lovenox Attestations Medical Necessity Statement*: Patient requires continuous monitoring for his confusion, hypoglycemia, with concerns for COVID-19 person of interest (BAKARI), cystitis, pneumonia, and diarrhea. Coding Level of Care Code Acute Farm Mechanic Apprentice for g Fwd Diagnoses Altered mental status R40.4 Altered mental status type: transient alteration of awareness Hypoglycemia E16.2 Cystitis N30.90 Diarrhea R19.7 Pneumonia J18.9 Laterality: left Lung location: lower lobe of lung Pneumonia type: due to unspecified organism Adult onset hypothyroidism E03.8 HTN, goal below 130/80 I10 Controlled type 2 diabetes mellitus with hyperglycemia, with long-term current use of insulin E11.65; Z79.4 Benign prostatic hyperplasia with lower urinary tract symptoms N40.1; R35.0 Lower urinary tract symptom detail: urinary frequency Suspected 2019-nCoV infection Z20.822 Malignant neoplasm of overlapping sites of bladder C67.8 Urinary hesitancy R39.11
[2021-06-10 11:18] LABS: Glucose Point of Care 77 mg/dL (70-110)
[2021-06-10 20:15] LABS: Glucose Point of Care 168 mg/dL (70-110)
[2021-06-10] MEDS: enoxaparin 40 mg/0.4 mL Syringe SUBCUT (21:57)
[2021-06-11 03:25] VITALS: BP 112/62; PULSE 69; RESP 16; TEMP 37.6; O2SAT 93
[2021-06-11] MEDS: dextrose 5%-sod chloride 0.9% 1,000 ML 75 ML IV ×2 (05:59→20:04)
[2021-06-11 06:12] LABS: Hematocrit 38.8 % (42.0-52.0); Hemoglobin 12.6 g/dL (11.7-16.6); Lymphocytes # 1.1 10^3/uL (0.8-4.8); Lymphocytes % 33.4 %; Mean Corpuscular HGB Conc 32.5 g/dL (30.0-36.0); Mean Corpuscular Hemoglobin 29.4 pg (28.0-34.0); Mean Corpuscular Volume 90.7 fL (80-94); Mean Platelet Volume 10.6 fL (7.4-10.4); Monocytes # 0.3 10^3/uL (0.2-0.9); Monocytes % 8.7 %; Neutrophils % 57.3 %; Nucleated Red Blood Cells % 0 %; Platelet Count 120 10^3/cmm (130-400); Red Blood Count 4.28 10^6/uL (4.1-5.3); Red Cell Distribution Width 14.7 % (12.1-15.1); White Blood Count 3.3 10^3/uL (4.0-10.0)
[2021-06-11 06:29] LABS: Glucose Point of Care 170 mg/dL (70-110)
[2021-06-11 06:31] LABS: Alanine Aminotransferase 15 U/L (0-41); Albumin Level 2.9 g/dL (3.5-5.2); Alkaline Phosphatase 55 IU/L (40-130); Aspartate Amino Transferase 32 U/L (0-40); Blood Urea Nitrogen 26 mg/dL (8-23); Calcium 7.9 mg/dL (8.5-10.5); Carbon Dioxide 21 mmol/L (22-29); Chloride 106 mmol/L (98-107); Globulin 2.7 g/dL (1.3-4.6); Glucose 170 mg/dL (65-115); Osmolality Calculated 289 mOsm/kg (285-295); Sodium 135 mmol/L (136-145); Total Bilirubin 0.4 mg/dL (0.15-1.2); Total Protein 5.6 g/dL (6.6-8.7)
[2021-06-11 07:27] VITALS: BP 120/76; PULSE 78; RESP 16; TEMP 36.4; O2SAT 90
[2021-06-11] MEDS: levothyroxine 112 mcg Tablet PO (08:51)
[2021-06-11] MEDS: levoFLOXacin 500 mg Tablet PO (08:51)
[2021-06-11] MEDS: atorvastatin 40 mg Tablet 80 MG PO (08:51)
[2021-06-11] MEDS: tamsulosin 0.4 mg Capsule PO (08:51)
--- NOTE | 2021-06-11 09:22 | PM.PN ---
Subjective Subjective: Interval history: Patient Covid PCR swab came back positive for COVID-19 virus. The patient was seen today lying down in the room. He endorsed the sensation of generalized weakness and poor appetite. He stated that he attempted to drink his soup, but he appears to have only had about a third of the soup. He continues to deny fever, chills, chest pain, shortness of breath, diarrhea, abdominal pain. He states that he feels as if he was run over. Medications: Reviewed: Yes Vitals/I&O/Wt Last Vital Signs Temp 97.6 F 06/11/21 07:27 Pulse 78 06/11/21 07:27 Resp 16 06/11/21 07:27 BP 120/76 06/11/21 07:27 Pulse Ox 90 06/11/21 07:27 06/10/21 06/11/21 06/11/21 22:59 06:59 14:59 Intake Total 1070 / 1910 1240 / 3150 Output Total 475 / 475 0 / 475 Balance 595 / 1435 1240 / 2675 Weight last 48 hrs Weight 90.718 kg Physical Exam Const: COMMON NORMALS: alert GENERAL APPEARANCE: cooperative, ill appearing and frail appearing ORIENTATION/CONSCIOUSNESS: Yes awake HENMT: COMMON NORMALS: normocephalic, atraumatic, external ears normal and Normal external nose present HEAD & SCALP: normocephalic and atraumatic FACE & SINUS: normal facial exam NOSE: Normal external nose present EXTERNAL EAR: Yes external ears normal Eye: COMMON NORMALS: Equal, round and reactive pupils present and conjunctivae normal CONJUNCTIVA: Yes conjunctivae normal PUPIL: Yes Equal, round and reactive pupils present EOM: No EOM abnormal Neck/C-Spine: COMMON NORMALS: Thyroid normal GENERAL: Yes trachea midline, Yes anterior neck swelling and No lymphadenopathy THYROID: Thyroid normal Resp: EFFORT & INSPECTION: Yes able to speak in complete sentences Cardio: COMMON NORMALS: regular rate and regular rhythm RATE: regular rate RHYTHM: regular rhythm HEART SOUNDS: no click, no gallops, no murmurs and no rubs GI: COMMON NORMALS: Soft to palpation and No hepatosplenomegaly present AUSCULTATION: Yes normoactive bowel sounds PALPATION: Yes Soft to palpation, No Tenderness to palpation present (GI), No Guarding due to palpation present (GI), No Rigid due to palpation, Yes No hepatosplenomegaly present and No Rebound tenderness present Extremity: COMMON NORMALS: no clubbing, cyanosis or edema Neuro: SENSORIUM/ORIENTATION: Yes alert CRANIAL NERVES: Yes CN normal except as noted SPEECH: speech normal GAIT: Yes Normal gait present SENSORY EXAM: Yes Normal double simultaneous stimulation for sensation MOTOR EXAM: 5/5 motor strength present throughout Psych: COMMON NORMALS: speech normal ATTITUDE: Yes calm and Yes Withdrawn affect present SPEECH: Yes normal speech Skin: COMMON NORMALS: no rashes or lesions noted GENERAL SKIN EXAM: no rashes or lesions noted Data : 06/11/21 05:21 06/11/21 05:21 Micro: Microbiology 06/10/21 09:40 Blood Culture - Preliminary Blood SPECIMEN COLLECTED 06/10/21 09:38 Blood Culture - Preliminary Blood SPECIMEN COLLECTED A&P Assessment and plan (1) Altered mental status: likely related to acute hypoglycemia vs metabolic encephalopathy Currently patient is alert awake and oriented, though takes time to respond, appears dehydrated Attempt to ascertain baseline with family in morning Status: Acute Qualifiers: Altered mental status type: transient alteration of awareness Qualified Code(s): R40.4 - Transient alteration of awareness (2) Hypoglycemia: now resolved after Dextrose iv May be related to incorrect insulin use vs OHAs check Hba1c with am labs check TSH, random cortisol Reports poor po intake, nausea and diarrhea which are likely contributing hold insulin and glipizide patient appears dehydrated, started on D5NS Status: Acute (3) Cystitis: continue levaquin UA currently with no WBC, no LA Status: Acute (4) Diarrhea: CT abdomen C diff Pcr, enteric bacterial and parasite panel Status: Acute (5) Pneumonia: currently on levaquin, check procal saturating well on RA Status: Acute Qualifiers: Laterality: left Lung location: lower lobe of lung Pneumonia type: due to unspecified organism Qualified Code(s): J18.9 - Pneumonia, unspecified organism (6) Adult onset hypothyroidism: Status: Chronic (7) HTN, goal below 130/80: Status: Chronic (8) Controlled type 2 diabetes mellitus with hyperglycemia, with long-term current use of insulin: Status: Chronic (9) Benign prostatic hyperplasia with lower urinary tract symptoms: Status: Acute Qualifiers: Lower urinary tract symptom detail: urinary frequency Qualified Code(s): N40.1 - Benign prostatic hyperplasia with lower urinary tract symptoms; R35.0 - Frequency of micturition (10) Suspected 2019-nCoV infection: Status: Acute (11) Malignant neoplasm of overlapping sites of bladder: Status: Acute (12) Urinary hesitancy: Status: Chronic Additional A&P Information Mr. Zheng is an 80yo man w/ IDDM2, HTN, HLD, CKD stage III, h/o bladder transitional cell carcinoma s/p fulguration, and hypothyroidism, who represented to the ED on 06/09/2021 w/ complaints of generalized fatigue and weakness. The patient initially presented to the ED on 06/07/2021 with complaints of weakness, diarrhea, generalized fatigue, cough shortness of breath and low-grade fever at home. He was noted to be confused at the time and could not answer too many questions. A CXR was done at that time, that showed a left basilar opacity concerning for pneumonia. UA was concerning for UTI. A rapid COVID-19 test was done, that was negative. Discharged on levofloxacin 500 mg daily for the next 7 days, with the concern that he may still be Covid positive. It was unclear at the time, that he had ever been vaccinated. He represented on 06/09, where he was noted to be hypoglycemic to 40, his UA still concerning for UTI, and his CXR is still showing a mild persistent left basilar opacity concerning for pneumonia. A head CT was done that showed no acute infarct or hemorrhage, but did show old left basal ganglia lacunar infarcts.A CT abdomen and pelvis was done for his complaints of diarrhea, that showed patchy partially visualized groundglass infiltrates in the lower lobes & RML, concerning for COVIID-19 pneumonia. #AMS (Confusion) - Concern for Acute Metabolic encephalopathy.-Improved. Likely due to his COVID-19 infection, with fever UTI, pneumonia. Trop T wnl. # Moderate COVID-19 Infection # COVID pneumonia w/ possible super-imposed bacterial pneumonia. - COVID-19 PCR positive -Started remdesivir. # Hypoglycemia # IDDM2 - Improved. Continued BG monitoring. Random cortisol level wnl. Held anti hypoglycemics for now. On d5 1/2 NS for now. # Hypothyroidism - TSH wnl, but could likely afford slight readjustment. Defer to his PCP. # Diarrhea - Stool studies (C diff/ enteric pathogen panel) pending-patient has not had a BM. # Cystitis - Continue Levofloxacin # Pneumonia - Continue Levofloxacin. Procalcitonin level wnl. # chronic CKD III - Continue monitoring #BPH: On Tamsulosin #HTN: Held BP meds of metoprolol & Lisinopril for now. Patient remains normotensive. DVT ppx: Lovenox Attestations Medical Necessity Statement*: Patient requires continued monitoring due to poor p.o. intake concern for hypoglycemia electrolyte abnormalities, and the initiation of remdesivir, Covid COVID-19 infection. Coding Level of Care Code Acute Field Superintendent for [facility] Fwd Exam Comprehensive Diagnoses Altered mental status R40.4 Altered mental status type: transient alteration of awareness Hypoglycemia E16.2 Cystitis N30.90 Diarrhea R19.7 Pneumonia J18.9 Laterality: left Lung location: lower lobe of lung Pneumonia type: due to unspecified organism Adult onset hypothyroidism E03.8 HTN, goal below 130/80 I10 Controlled type 2 diabetes mellitus with hyperglycemia, with long-term current use of insulin E11.65; Z79.4 Benign prostatic hyperplasia with lower urinary tract symptoms N40.1; R35.0 Lower urinary tract symptom detail: urinary frequency Suspected 2019-nCoV infection Z20.822 Malignant neoplasm of overlapping sites of bladder C67.8 Urinary hesitancy R39.11
--- NOTE | 2021-06-11 09:59 | PC.CHAP ---
Pastoral Care Encounter/Spiritual Assessment Type of Contact [] Declined remediation technician visit [] Patient/Family/Request visit [] Outpatient visit [] Follow-up visit [] Physician referral [] Code/Alert [x] Routine visit [] Staff referral [] Actively dying [] Patient sleeping [] Family support [] [] Out of room [] Palliative care [] [] Receiving care in room [] Pre-surgical visit [] Trauma [] Long length of stay [] ICU visit [x] Other: isolated Relational/Emotional Strength [] Patient feels connected with others/family/visitors/staff [] Distress [] Loneliness/isolation [] Abandonment Spirituality of Patient [] Person of Betty [] Attends Druze of their Betty [] Believes in Prayer [] Reads Bible or Hinduism materials [] There are Spiritual issues to be addressed Flash Developer Interventions [x] Prayer [] Active listening [] Non-anxious presence [] Spiritual/emotional support [] Crisis/trauma care [] Spiritual counseling [] Bereavement support [] Provided bereavement packet [] Provided Bible/devotional materials [] Provided toy/stuffed animal, coloring book to patient or family member [] Provided Communion [] Anointing/[place] [] Salvation [x] Completed spiritual assessment [] Other: Impact on Illness or Injury [] Angry [] Fearful [] Anxious [] Often cries [] Exhaustion [] Unable to work [] Unable to attend scientologist [] Unable to walk/stand [] Unable to read [] Unable to drive [] Unable to eat/drink [] Unable to sleep [] Unable to be with family [] Patient intubated [] Other: Summary Time spent with patient
[2021-06-11 12:28] LABS: T4 Total 12.7 mcg/dL (4.9-10.5)
[2021-06-11 13:08] LABS: Magnesium 1.7 mg/dL (1.7-2.3); Phosphorus 1.7 mg/dL (2.5-4.5)
[2021-06-11 13:15] LABS: Coronavirus Test Green County Detected
[2021-06-11 16:00] VITALS: BP 148/90; PULSE 59; RESP 18; TEMP 36.8; O2SAT 92
[2021-06-11] MEDS: remdesivir 200 MG in sodium chloride 0.9% (100 ml) 100 ML 100 MG IV (16:13)
[2021-06-11 16:29] VITALS: BP 158/80; PULSE 59; RESP 16; TEMP 36.8; O2SAT 92
[2021-06-11 18:10] LABS: Glucose Point of Care 152 mg/dL (70-110)
[2021-06-11 20:00] VITALS: BP 102/56; PULSE 64; RESP 17; TEMP 36.7; O2SAT 91
[2021-06-11] MEDS: magnesium sulfate premix 2 GM/50 ML PIGGYBACK IV (20:05)
[2021-06-11] MEDS: enoxaparin 40 mg/0.4 mL Syringe SUBCUT (20:05)
[2021-06-11 20:55] LABS: Glucose Point of Care 163 mg/dL (70-110)
[2021-06-11 23:42] VITALS: BP 121/69; PULSE 68; RESP 17; TEMP 36.7; O2SAT 93
[2021-06-12] VITALS (8 sets, daily range): BP systolic 121–170; BP diastolic 63–86; PULSE 59–84; RESP 16–18; TEMP 36.6–37.7; O2SAT 2–95
[2021-06-12 06:33] LABS: Glucose Point of Care 280 mg/dL (70-110)
[2021-06-12 07:13] LABS: Basophils % 0.3 %; Hematocrit 37.2 % (42.0-52.0); Hemoglobin 12.2 g/dL (11.7-16.6); Lymphocytes # 1.4 10^3/uL (0.8-4.8); Lymphocytes % 39.8 %; Mean Corpuscular HGB Conc 32.8 g/dL (30.0-36.0); Mean Corpuscular Hemoglobin 29.2 pg (28.0-34.0); Mean Platelet Volume 10.3 fL (7.4-10.4); Monocytes # 0.3 10^3/uL (0.2-0.9); Monocytes % 9.1 %; Neutrophils # 1.78 10^3/uL (1.8-7.7); Neutrophils % 50.5 %; Nucleated Red Blood Cells % 0 %; Platelet Count 128 10^3/cmm (130-400); Red Blood Count 4.18 10^6/uL (4.1-5.3); Red Cell Distribution Width 14.7 % (12.1-15.1); White Blood Count 3.5 10^3/uL (4.0-10.0)
[2021-06-12 07:39] LABS: Alanine Aminotransferase 13 U/L (0-41); Albumin Level 2.8 g/dL (3.5-5.2); Alkaline Phosphatase 54 IU/L (40-130); Anion Gap 13.2 (5-19); Aspartate Amino Transferase 26 U/L (0-40); Blood Urea Nitrogen 18 mg/dL (8-23); Calcium 7.3 mg/dL (8.5-10.5); Carbon Dioxide 21 mmol/L (22-29); Chloride 109 mmol/L (98-107); Globulin 2.6 g/dL (1.3-4.6); Glucose 150 mg/dL (65-115); Osmolality Calculated 293 mOsm/kg (285-295); Phosphorus 2.4 mg/dL (2.5-4.5); Potassium 4.2 mmol/L (3.5-5.1); Sodium 139 mmol/L (136-145); Total Bilirubin 0.3 mg/dL (0.15-1.2); Total Protein 5.4 g/dL (6.6-8.7)
[2021-06-12] MEDS: levoFLOXacin 500 mg Tablet PO (08:56)
[2021-06-12] MEDS: atorvastatin 40 mg Tablet 80 MG PO (08:56)
[2021-06-12] MEDS: levothyroxine 112 mcg Tablet PO (08:56)
[2021-06-12] MEDS: tamsulosin 0.4 mg Capsule PO (08:56)
[2021-06-12] MEDS: dextrose 5%-sod chloride 0.9% 1,000 ML 75 ML IV (08:57)
--- NOTE | 2021-06-12 10:00 | PM.PN ---
Subjective Subjective: Interval history: This morning, patient's blood glucose was as high as 280. His D5 half NS was DC'd. He continues to complain of generalized weakness appetite. He denies any fever, chills, shortness of breath, palpitation, dizziness, chest pain, abdominal pain, nausea, vomiting, diarrhea. Medications: Reviewed: Yes Vitals/I&O/Wt Last Vital Signs Temp 98.2 F 06/12/21 07:04 Pulse 63 06/12/21 03:48 Resp 18 06/12/21 07:04 BP 122/70 06/12/21 07:04 Pulse Ox 95 06/12/21 07:04 06/11/21 06/12/21 06/12/21 22:59 06:59 14:59 Intake Total 1100 / 1100 260 / 1360 1190 / 1190 Output Total 600 / 1300 300 / 1600 Balance 500 / -200 -40 / -240 1190 / 1190 Physical Exam Const: COMMON NORMALS: alert GENERAL APPEARANCE: cooperative, ill appearing and frail appearing ORIENTATION/CONSCIOUSNESS: Yes awake HENMT: COMMON NORMALS: normocephalic, atraumatic, external ears normal and Normal external nose present HEAD & SCALP: normocephalic and atraumatic FACE & SINUS: normal facial exam NOSE: Normal external nose present EXTERNAL EAR: Yes external ears normal Eye: COMMON NORMALS: Equal, round and reactive pupils present and conjunctivae normal CONJUNCTIVA: Yes conjunctivae normal PUPIL: Yes Equal, round and reactive pupils present EOM: No EOM abnormal Neck/C-Spine: COMMON NORMALS: Thyroid normal GENERAL: Yes trachea midline, Yes anterior neck swelling and No lymphadenopathy THYROID: Thyroid normal Resp: EFFORT & INSPECTION: Yes able to speak in complete sentences Cardio: COMMON NORMALS: regular rate and regular rhythm RATE: regular rate RHYTHM: regular rhythm HEART SOUNDS: no click, no gallops, no murmurs and no rubs GI: COMMON NORMALS: Soft to palpation and No hepatosplenomegaly present AUSCULTATION: Yes normoactive bowel sounds PALPATION: Yes Soft to palpation, No Tenderness to palpation present (GI), No Guarding due to palpation present (GI), No Rigid due to palpation, Yes No hepatosplenomegaly present and No Rebound tenderness present Extremity: COMMON NORMALS: no clubbing, cyanosis or edema Neuro: SENSORIUM/ORIENTATION: Yes alert CRANIAL NERVES: Yes CN normal except as noted SPEECH: speech normal GAIT: Yes Normal gait present SENSORY EXAM: Yes Normal double simultaneous stimulation for sensation MOTOR EXAM: 5/5 motor strength present throughout Psych: COMMON NORMALS: speech normal ATTITUDE: Yes calm and Yes Withdrawn affect present SPEECH: Yes normal speech Skin: COMMON NORMALS: no rashes or lesions noted GENERAL SKIN EXAM: no rashes or lesions noted Data : 06/13/21 06:16 06/13/21 06:16 Micro: Microbiology 06/10/21 09:38 Blood Culture - Preliminary Blood NEGATIVE TO DATE 06/10/21 09:40 Blood Culture - Preliminary Blood NEGATIVE TO DATE A&P Assessment and plan (1) Altered mental status: likely related to acute hypoglycemia vs metabolic encephalopathy Currently patient is alert awake and oriented, though takes time to respond, appears dehydrated Attempt to ascertain baseline with family in morning Status: Acute Qualifiers: Altered mental status type: transient alteration of awareness Qualified Code(s): R40.4 - Transient alteration of awareness (2) Hypoglycemia: now resolved after Dextrose iv May be related to incorrect insulin use vs OHAs check Hba1c with am labs check TSH, random cortisol Reports poor po intake, nausea and diarrhea which are likely contributing hold insulin and glipizide patient appears dehydrated, started on D5NS Status: Acute (3) Cystitis: continue levaquin UA currently with no WBC, no LA Status: Acute (4) Diarrhea: CT abdomen C diff Pcr, enteric bacterial and parasite panel Status: Acute (5) Pneumonia: currently on levaquin, check procal saturating well on RA Status: Acute Qualifiers: Laterality: left Lung location: lower lobe of lung Pneumonia type: due to unspecified organism Qualified Code(s): J18.9 - Pneumonia, unspecified organism (6) Adult onset hypothyroidism: Status: Chronic (7) HTN, goal below 130/80: Status: Chronic (8) Controlled type 2 diabetes mellitus with hyperglycemia, with long-term current use of insulin: Status: Chronic (9) Benign prostatic hyperplasia with lower urinary tract symptoms: Status: Acute Qualifiers: Lower urinary tract symptom detail: urinary frequency Qualified Code(s): N40.1 - Benign prostatic hyperplasia with lower urinary tract symptoms; R35.0 - Frequency of micturition (10) Suspected 2019-nCoV infection: Status: Acute (11) Malignant neoplasm of overlapping sites of bladder: Status: Acute (12) Urinary hesitancy: Status: Chronic Additional A&P Information Mr. Zheng is an 80yo man w/ IDDM2, HTN, HLD, CKD stage III, h/o bladder transitional cell carcinoma s/p fulguration, and hypothyroidism, who represented to the ED on 06/09/2021 w/ complaints of generalized fatigue and weakness. The patient initially presented to the ED on 06/07/2021 with complaints of weakness, diarrhea, generalized fatigue, cough shortness of breath and low-grade fever at home. He was noted to be confused at the time and could not answer too many questions. A CXR was done at that time, that showed a left basilar opacity concerning for pneumonia. UA was concerning for UTI. A rapid COVID-19 test was done, that was negative. Discharged on levofloxacin 500 mg daily for the next 7 days, with the concern that he may still be Covid positive. It was unclear at the time, that he had ever been vaccinated. He represented on 06/09, where he was noted to be hypoglycemic to 40, his UA still concerning for UTI, and his CXR is still showing a mild persistent left basilar opacity concerning for pneumonia. A head CT was done that showed no acute infarct or hemorrhage, but did show old left basal ganglia lacunar infarcts.A CT abdomen and pelvis was done for his complaints of diarrhea, that showed patchy partially visualized groundglass infiltrates in the lower lobes & RML, concerning for COVIID-19 pneumonia. He was retested for COVID-19 COVID-19 PCR, on 06/10, and he was positive the next day, 06/11. Remdesivir was initiated on 06/11. #AMS (Confusion) - Concern for Acute Metabolic encephalopathy.-Improved. Likely due to his COVID-19 infection, with fever UTI, pneumonia. Trop T wnl. # Moderate COVID-19 Infection # COVID pneumonia w/ possible super-imposed bacterial pneumonia. - COVID-19 PCR positive -Started remdesivir on 06/11. # Hypoglycemia # Hyperglycemia # IDDM2 - Improved. Continued BG monitoring. Random cortisol level wnl. Held anti hypoglycemics. Given the hyperglycemia, DC'd d5 1/2 NS. Ordered 10units insulin aspart as well as 10 units insulin lantus. # Hypothyroidism - TSH wnl, but could likely afford slight readjustment. Defer to his PCP. # Diarrhea - Stool studies (C diff/ enteric pathogen panel) pending-patient has not had a BM since presentation to the hospital. # Cystitis UCx sensitive to Levofloxacin - Continue. # Pneumonia - Continue Levofloxacin. Procalcitonin level wnl. # chronic CKD III - Continue monitoring #BPH: On Tamsulosin #HTN: Hold BP meds of metoprolol & Lisinopril for now. Patient remains normotensive. DVT ppx: Lovenox Attestations Medical Necessity Statement*: Requires continued hospitalization due to symptomatic COVID-19 and episodes of hypoglycemia requiring close monitoring. Coding Level of Care Code Acute Field Contact Technician for [employer] Fwd Diagnoses Altered mental status R40.4 Altered mental status type: transient alteration of awareness Hypoglycemia E16.2 Cystitis N30.90 Diarrhea R19.7 Pneumonia J18.9 Laterality: left Lung location: lower lobe of lung Pneumonia type: due to unspecified organism Adult onset hypothyroidism E03.8 HTN, goal below 130/80 I10 Controlled type 2 diabetes mellitus with hyperglycemia, with long-term current use of insulin E11.65; Z79.4 Benign prostatic hyperplasia with lower urinary tract symptoms N40.1; R35.0 Lower urinary tract symptom detail: urinary frequency Suspected 2019-nCoV infection Z20.822 Malignant neoplasm of overlapping sites of bladder C67.8 Urinary hesitancy R39.11
[2021-06-12] MEDS: sodium chloride 0.9% 1,000 ML 75 ML IV (10:44)
[2021-06-12] MEDS: insulin glargine 100 units/1 mL 10 UNIT SUBCUT (10:44)
[2021-06-12 10:55] LABS: Glucose Point of Care 185 mg/dL (70-110)
[2021-06-12 12:19] LABS: Glucose Point of Care 154 mg/dL (70-110)
[2021-06-12 15:19] LABS: Glucose Point of Care 52 mg/dL (70-110)
--- NOTE | 2021-06-12 15:21 | PC.NURSE ---
patient complains of headache and sweating. patient's blood sugar is 53. automobile service writer gave patient orange juice and pudding. will monitor patient's blood sugar.
[2021-06-12] MEDS: remdesivir 100 MG in sodium chloride 0.9% (100 ml) 100 ML IV (16:32)
[2021-06-12 16:47] LABS: Glucose Point of Care 97 mg/dL (70-110)
--- NOTE | 2021-06-12 16:54 | PC.NURSE ---
notified Dr Reyna that patient's blood sugar was 52. patient was given orange juice and pudding and patient's blood sugar is now 97.
[2021-06-12 20:09] LABS: Glucose Point of Care 145 mg/dL (70-110)
[2021-06-12] MEDS: enoxaparin 40 mg/0.4 mL Syringe SUBCUT (20:18)
[2021-06-13] VITALS (7 sets, daily range): BP systolic 117–147; BP diastolic 61–67; PULSE 60–74; RESP 14–17; TEMP 36.5–36.7; O2SAT 92–98
[2021-06-13 06:19] LABS: Glucose Point of Care 126 mg/dL (70-110)
[2021-06-13 07:05] LABS: Basophils % 0.4 %; Eosinophils % 0.4 %; Hematocrit 40.7 % (42.0-52.0); Hemoglobin 12.9 g/dL (11.7-16.6); Lymphocytes # 1.3 10^3/uL (0.8-4.8); Lymphocytes % 27.3 %; Mean Corpuscular HGB Conc 31.7 g/dL (30.0-36.0); Mean Corpuscular Hemoglobin 29.1 pg (28.0-34.0); Mean Corpuscular Volume 91.9 fL (80-94); Monocytes # 0.4 10^3/uL (0.2-0.9); Monocytes % 7.6 %; Neutrophils # 3.12 10^3/uL (1.8-7.7); Neutrophils % 63.7 %; Nucleated Red Blood Cells % 0 %; Platelet Count 153 10^3/cmm (130-400); Red Blood Count 4.43 10^6/uL (4.1-5.3); Red Cell Distribution Width 14.9 % (12.1-15.1); White Blood Count 4.9 10^3/uL (4.0-10.0)
[2021-06-13 07:21] LABS: Alanine Aminotransferase 15 U/L (0-41); Albumin Level 2.8 g/dL (3.5-5.2); Alkaline Phosphatase 64 IU/L (40-130); Anion Gap 12.2 (5-19); Aspartate Amino Transferase 24 U/L (0-40); Blood Urea Nitrogen 17 mg/dL (8-23); Calcium 7.7 mg/dL (8.5-10.5); Carbon Dioxide 21 mmol/L (22-29); Chloride 107 mmol/L (98-107); Globulin 2.9 g/dL (1.3-4.6); Glucose 133 mg/dL (65-115); Osmolality Calculated 285 mOsm/kg (285-295); Phosphorus 2.1 mg/dL (2.5-4.5); Potassium 4.2 mmol/L (3.5-5.1); Sodium 136 mmol/L (136-145); Total Bilirubin 0.6 mg/dL (0.15-1.2); Total Protein 5.7 g/dL (6.6-8.7)
[2021-06-13] MEDS: levothyroxine 112 mcg Tablet PO (08:22)
[2021-06-13] MEDS: tamsulosin 0.4 mg Capsule PO (08:22)
[2021-06-13] MEDS: levoFLOXacin 500 mg Tablet PO (08:22)
[2021-06-13] MEDS: atorvastatin 40 mg Tablet 80 MG PO (08:22)
[2021-06-13] MEDS: phosphorus 250 mg Tablet 500 MG PO ×2 (08:28→16:27)
--- NOTE | 2021-06-13 08:31 | PC.SOCIAL ---
IMM Update Pg.2 of IMM Updated and reviewed with patient over the phone, who verbalized understanding.
--- NOTE | 2021-06-13 11:50 | PC.NUTR ---
Nutrition consult: Received verbal consult from Dr. Reyna this AM to assess pt due to decreased po intake. Pt was confused during interview, unsure of recent weight change. Also slightly confused about whether he has DM or checks blood sugar at home. Was able to express willingness to try supplement and which flavor he would like. Recommend to liberalize diet to Regular to optimize po intakes and add Ensure Plus (strawberry) TID. Received verbal order from MD to make these changes. See RD assessment for further details.
[2021-06-13 11:52] LABS: Glucose Point of Care 201 mg/dL (70-110)
[2021-06-13] MEDS: remdesivir 100 MG in sodium chloride 0.9% (100 ml) 100 ML IV (16:26)
[2021-06-13 17:45] LABS: Glucose Point of Care 163 mg/dL (70-110)
[2021-06-13] MEDS: enoxaparin 40 mg/0.4 mL Syringe SUBCUT (20:43)
[2021-06-13] MEDS: ALPRAZolam 0.5 mg Tablet 0.25 MG PO (20:43)
[2021-06-13 20:56] LABS: Glucose Point of Care 147 mg/dL (70-110)
--- NOTE | 2021-06-13 22:17 | PM.PN ---
Subjective Subjective: Interval history: This morning, the nurse reported that his blood glucose was 52 this morning, and he was given snacks and juice, with improvement to 97. When the patient was seen this morning, he was shaving. He was encouraged to walk the length of his room, which he did twice, but he became quite weak, and did not want to eat lunch. He was only able to eat some of his lunch with a lot of encouragement. He continues to deny any abdominal pain, nausea, vomiting, fever, chills, chest pain, shortness of breath, palpitation or cough. Medications: Reviewed: Yes Vitals/I&O/Wt Last Vital Signs Temp 98.0 F 06/13/21 19:32 Pulse 71 06/13/21 19:32 Resp 17 06/13/21 19:32 BP 119/61 06/13/21 19:32 Pulse Ox 92 06/13/21 19:32 06/13/21 06/13/21 06/13/21 06:59 14:59 22:59 Intake Total 1000 / 2606.25 480 / 480 400 / 880 Output Total 750 / 1300 Balance 250 / 1306.25 480 / 480 400 / 880 Physical Exam Const: COMMON NORMALS: alert GENERAL APPEARANCE: cooperative, ill appearing and frail appearing ORIENTATION/CONSCIOUSNESS: Yes awake HENMT: COMMON NORMALS: normocephalic, atraumatic, external ears normal and Normal external nose present HEAD & SCALP: normocephalic and atraumatic FACE & SINUS: normal facial exam NOSE: Normal external nose present EXTERNAL EAR: Yes external ears normal Eye: COMMON NORMALS: Equal, round and reactive pupils present and conjunctivae normal CONJUNCTIVA: Yes conjunctivae normal PUPIL: Yes Equal, round and reactive pupils present EOM: No EOM abnormal Neck/C-Spine: COMMON NORMALS: Thyroid normal GENERAL: Yes trachea midline, Yes anterior neck swelling and No lymphadenopathy THYROID: Thyroid normal Resp: EFFORT & INSPECTION: Yes able to speak in complete sentences Cardio: COMMON NORMALS: regular rate and regular rhythm RATE: regular rate RHYTHM: regular rhythm HEART SOUNDS: no click, no gallops, no murmurs and no rubs GI: COMMON NORMALS: Soft to palpation and No hepatosplenomegaly present AUSCULTATION: Yes normoactive bowel sounds PALPATION: Yes Soft to palpation, No Tenderness to palpation present (GI), No Guarding due to palpation present (GI), No Rigid due to palpation, Yes No hepatosplenomegaly present and No Rebound tenderness present Extremity: COMMON NORMALS: no clubbing, cyanosis or edema Neuro: SENSORIUM/ORIENTATION: Yes alert CRANIAL NERVES: Yes CN normal except as noted SPEECH: speech normal GAIT: Yes Normal gait present SENSORY EXAM: Yes Normal double simultaneous stimulation for sensation MOTOR EXAM: 5/5 motor strength present throughout Psych: COMMON NORMALS: speech normal ATTITUDE: Yes calm and Yes Withdrawn affect present SPEECH: Yes normal speech Skin: COMMON NORMALS: no rashes or lesions noted GENERAL SKIN EXAM: no rashes or lesions noted Data : 06/13/21 06:16 06/13/21 06:16 A&P Assessment and plan (1) Altered mental status: likely related to acute hypoglycemia vs metabolic encephalopathy Currently patient is alert awake and oriented, though takes time to respond, appears dehydrated Attempt to ascertain baseline with family in morning Status: Acute Qualifiers: Altered mental status type: transient alteration of awareness Qualified Code(s): R40.4 - Transient alteration of awareness (2) Hypoglycemia: now resolved after Dextrose iv May be related to incorrect insulin use vs OHAs check Hba1c with am labs check TSH, random cortisol Reports poor po intake, nausea and diarrhea which are likely contributing hold insulin and glipizide patient appears dehydrated, started on D5NS Status: Acute (3) Cystitis: continue levaquin UA currently with no WBC, no LA Status: Acute (4) Diarrhea: CT abdomen C diff Pcr, enteric bacterial and parasite panel Status: Acute (5) Pneumonia: currently on levaquin, check procal saturating well on RA Status: Acute Qualifiers: Laterality: left Lung location: lower lobe of lung Pneumonia type: due to unspecified organism Qualified Code(s): J18.9 - Pneumonia, unspecified organism (6) Adult onset hypothyroidism: Status: Chronic (7) HTN, goal below 130/80: Status: Chronic (8) Controlled type 2 diabetes mellitus with hyperglycemia, with long-term current use of insulin: Status: Chronic (9) Benign prostatic hyperplasia with lower urinary tract symptoms: Status: Acute Qualifiers: Lower urinary tract symptom detail: urinary frequency Qualified Code(s): N40.1 - Benign prostatic hyperplasia with lower urinary tract symptoms; R35.0 - Frequency of micturition (10) Suspected 2019-nCoV infection: Status: Acute (11) Malignant neoplasm of overlapping sites of bladder: Status: Acute (12) Urinary hesitancy: Status: Chronic Additional A&P Information Mr. Zheng is an 80yo man w/ IDDM2, HTN, HLD, CKD stage III, h/o bladder transitional cell carcinoma s/p fulguration, and hypothyroidism, who represented to the ED on 06/09/2021 w/ complaints of generalized fatigue and weakness. The patient initially presented to the ED on 06/07/2021 with complaints of weakness, diarrhea, generalized fatigue, cough shortness of breath and low-grade fever at home. He was noted to be confused at the time and could not answer too many questions. A CXR was done at that time, that showed a left basilar opacity concerning for pneumonia. UA was concerning for UTI. A rapid COVID-19 test was done, that was negative. Discharged on levofloxacin 500 mg daily for the next 7 days, with the concern that he may still be Covid positive. It was unclear at the time, that he had ever been vaccinated. He represented on 06/09, where he was noted to be hypoglycemic to 40, his UA still concerning for UTI, and his CXR is still showing a mild persistent left basilar opacity concerning for pneumonia. A head CT was done that showed no acute infarct or hemorrhage, but did show old left basal ganglia lacunar infarcts.A CT abdomen and pelvis was done for his complaints of diarrhea, that showed patchy partially visualized groundglass infiltrates in the lower lobes & RML, concerning for COVIID-19 pneumonia. He was retested for COVID-19 COVID-19 PCR, on 06/10, and he was positive the next day, 06/11. Remdesivir was initiated on 06/11. His hospital course has been affected by his poor appetite, requiring D5 half NS, that lead to episodes of hyperglycemia and discontinuation of the D51/2NS, followed by episodes of hypoglycemia due to insulin administration to treat the hyperglycemia and poor p.o. intake due to generalized weakness and malaise. #AMS (Confusion) - Resolved #Acute Metabolic encephalopathy -Improved. Likely due to his COVID-19 infection, with fever UTI, pneumonia. Trop T wnl. # COVID-19 Infection # COVID pneumonia w/ possible super-imposed bacterial pneumonia. - COVID-19 PCR positive -Started remdesivir on 06/11. # Hypoglycemia # Hyperglycemia # IDDM2 - Improved. Continued BG monitoring. Random cortisol level wnl. Held his home anti hypoglycemics. Given the hyperglycemia on 06/12, DC'd d5 1/2 NS & ordered 10units insulin aspart x 1 as well as 10 units insulin lantus and sliding scale. D/'augustus 10 units lantus on 06/13 due to the hypoglycemia. # Hypothyroidism - TSH wnl, but could likely afford slight readjustment. Defer to his PCP. # Diarrhea - Stool studies (C diff/ enteric pathogen panel) pending-patient has not had a BM since presentation to the hospital. # Cystitis UCx sensitive to Levofloxacin - Continue. # Pneumonia - Continue Levofloxacin. Procalcitonin level wnl. # chronic CKD III - Continue monitoring #BPH: On Tamsulosin #HTN: Hold BP meds of metoprolol & Lisinopril for now. Patient remains normotensive. DVT ppx: Lovenox Dispo: SNF fo rehab, per case management will be challenging because of his COVID-19 diagnosis. Attestations Medical Necessity Statement*: This patient requires continued hospitalization due to his COVID-19 infection, close monitoring of hyper and hypoglycemia due to generalized malaise and weakness. Coding Level of Care Code Acute [employer] Of [employer] for [employer] Fwd Diagnoses Altered mental status R40.4 Altered mental status type: transient alteration of awareness Hypoglycemia E16.2 Cystitis N30.90 Diarrhea R19.7 Pneumonia J18.9 Laterality: left Lung location: lower lobe of lung Pneumonia type: due to unspecified organism Adult onset hypothyroidism E03.8 HTN, goal below 130/80 I10 Controlled type 2 diabetes mellitus with hyperglycemia, with long-term current use of insulin E11.65; Z79.4 Benign prostatic hyperplasia with lower urinary tract symptoms N40.1; R35.0 Lower urinary tract symptom detail: urinary frequency Suspected 2019-nCoV infection Z20.822 Malignant neoplasm of overlapping sites of bladder C67.8 Urinary hesitancy R39.11
[2021-06-14] VITALS (7 sets, daily range): BP systolic 106–134; BP diastolic 65–76; PULSE 60–80; RESP 14–18; TEMP 36.4–36.8; O2SAT 91–95
[2021-06-14 06:16] LABS: Glucose Point of Care 151 mg/dL (70-110)
--- NOTE | 2021-06-14 06:45 | XRR_ITS ---
PROCEDURE INFORMATION: Exam: XR Chest Exam date and time: 06/14/2021 6:45 AM Age: 80 years old Clinical indication: Abnormal findings; Abnormal radiologic exam of lung or chest; Shortness of breath; Additional info: Possible pneumonia on last cxr TECHNIQUE: Imaging protocol: XR of the chest. Views: 1 view. COMPARISON: CR (CHEST, ) 06/09/2021 9:31 PM FINDINGS: Lungs: Tiny benign calcified granulomas are present in the left base. Hazy interstitial prominence in the left base is similar to old studies and most likely due to chronic fibrosis. No acute pneumonia is seen. Pleural spaces: Unremarkable. No pleural effusion. No pneumothorax. Heart/Mediastinum: Unremarkable. No cardiomegaly. Bones/joints: Unremarkable. XR/XR chest 1V portable [id number] IMPRESSION: 1. 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 2. No acute pneumonia is seen.
[2021-06-14 07:04] LABS: Basophils % 0.4 %; Eosinophils % 0.8 %; Hematocrit 38.9 % (42.0-52.0); Hemoglobin 12.6 g/dL (11.7-16.6); Lymphocytes # 1.2 10^3/uL (0.8-4.8); Lymphocytes % 23.9 %; Mean Corpuscular HGB Conc 32.4 g/dL (30.0-36.0); Mean Corpuscular Volume 89.6 fL (80-94); Mean Platelet Volume 10.1 fL (7.4-10.4); Monocytes # 0.4 10^3/uL (0.2-0.9); Monocytes % 9.1 %; Neutrophils # 3.18 10^3/uL (1.8-7.7); Neutrophils % 65.6 %; Nucleated Red Blood Cells % 0 %; Platelet Count 164 10^3/cmm (130-400); Red Blood Count 4.34 10^6/uL (4.1-5.3); Red Cell Distribution Width 14.7 % (12.1-15.1); White Blood Count 4.9 10^3/uL (4.0-10.0)
[2021-06-14 07:25] LABS: Alanine Aminotransferase 14 U/L (0-41); Albumin Level 2.5 g/dL (3.5-5.2); Alkaline Phosphatase 66 IU/L (40-130); Aspartate Amino Transferase 28 U/L (0-40); Blood Urea Nitrogen 19 mg/dL (8-23); Calcium 7.9 mg/dL (8.5-10.5); Carbon Dioxide 24 mmol/L (22-29); Chloride 108 mmol/L (98-107); Globulin 3.1 g/dL (1.3-4.6); Glucose 143 mg/dL (65-115); Osmolality Calculated 297 mOsm/kg (285-295); Sodium 141 mmol/L (136-145); Total Bilirubin 0.5 mg/dL (0.15-1.2); Total Protein 5.6 g/dL (6.6-8.7)
[2021-06-14 07:33] LABS: Magnesium 1.8 mg/dL (1.7-2.3); Phosphorus 2.9 mg/dL (2.5-4.5)
[2021-06-14 07:51] LABS: Anion Gap 13.1 (5-19)
[2021-06-14 07:52] LABS: Potassium 4.1 mmol/L (3.5-5.1)
[2021-06-14] MEDS: atorvastatin 40 mg Tablet 80 MG PO (09:37)
[2021-06-14] MEDS: levoFLOXacin 500 mg Tablet PO (09:37)
[2021-06-14] MEDS: levothyroxine 112 mcg Tablet PO (09:37)
[2021-06-14] MEDS: tamsulosin 0.4 mg Capsule PO (09:37)
[2021-06-14] MEDS: phosphorus 250 mg Tablet 500 MG PO (09:37)
[2021-06-14 11:14] LABS: Glucose Point of Care 179 mg/dL (70-110)
[2021-06-14] MEDS: ALPRAZolam 0.5 mg Tablet PO ×2 (15:10→23:36)
--- NOTE | 2021-06-14 16:02 | P.PN_ITS ---
Subjective Subjective: Interval history: Patient was seen and examined this morning, no overnight events patient is stating that he is very irritable because he has not been able to sleep yesterday he required Xanax 0.25 mg He has been afebrile No diarrhea No active chest pain or shortness of breath Vitals/I&O/Wt Last Vital Signs Temp 97.8 F 06/14/21 11:34 Pulse 72 06/14/21 11:34 Resp 14 06/14/21 11:34 BP 106/76 06/14/21 11:34 Pulse Ox 95 06/14/21 11:34 06/14/21 06/14/21 06/14/21 06:59 14:59 22:59 Intake Total 240 / 240 Output Total 400 / 400 Balance -400 / 480 240 / 240 Physical Exam Narrative: EXAM NARRATIVE: Patient was sitting in his bed saturating well on room air EOMI, PERRLA GCS 15 No neurological deficit S1, S2 with systolic murmur No active signs of congestive heart failure Abdomen soft nontender bowel sound present Bilateral breath sounds with mild rhonchi otherwise no acute respiratory distress No joint swelling or signs of cellulitis Irritable because of his insomnia Cooperative during my evaluation Data : 06/14/21 06:07 06/14/21 06:07 Micro: Microbiology 06/13/21 19:30 Enteric Pathogens (PCR) - Final Stool Parasite Antigen Panel - Final 06/13/21 19:30 C.difficile Toxin B Gene (PCR) - Final Stool - Stool Aspirate A&P Assessment and plan (1) COVID-19: Status: Acute (2) Hypoglycemia: Status: Acute (3) Altered mental status: Status: Acute Qualifiers: Altered mental status type: transient alteration of awareness Qualified Code(s): R40.4 - Transient alteration of awareness (4) Diarrhea: Status: Acute Additional A&P Information COVID-19 infection without hypoxemia Currently saturating well on room air Remdesivir last dose on 06/15 Hemodynamically stable He has been afebrile Metabolic encephalopathy: Resolved This was deemed secondary to dehydration and labile blood sugar Currently euglycemic Diarrhea: C. difficile panel negative this most likely related to COVID-19 infection BPH: Continue tamsulosin Hypertension: Continue lisinopril Hypothyroidism: Continue levothyroxine at 112 mcg For his insomnia I would use Xanax on as needed basis UTI with E. coli pansensitive, last day of Levaquin tomorrow 06/14 Regular diet DVT prophylaxis Lovenox Full code Pending placement to rehab, he lives alone and with his lethargy and fatigue not able to take care of himself Attestations Medical Necessity Statement*: Anticipating discharge to rehab once accepted Time Spent in Patient Care: 30mins Coding Level of Care Code Acute [employer] [facility] for [facility] Fwd Diagnoses COVID-19 U07.1 Hypoglycemia E16.2 Altered mental status R40.4 Altered mental status type: transient alteration of awareness Diarrhea R19.7
[2021-06-14] MEDS: remdesivir 100 MG in sodium chloride 0.9% (100 ml) 100 ML IV (16:45)
[2021-06-14 17:20] LABS: Glucose Point of Care 181 mg/dL (70-110)
[2021-06-14] MEDS: enoxaparin 40 mg/0.4 mL Syringe SUBCUT (21:30)
[2021-06-14 21:46] LABS: Glucose Point of Care 162 mg/dL (70-110)
[2021-06-15 04:00] VITALS: BP 120/65; PULSE 67; RESP 20; TEMP 36.4; O2SAT 92
[2021-06-15 07:12] LABS: Glucose Point of Care 194 mg/dL (70-110)
[2021-06-15 07:21] VITALS: BP 112/65; PULSE 62; RESP 14; TEMP 36.6; O2SAT 93
[2021-06-15] MEDS: atorvastatin 40 mg Tablet 80 MG PO (08:16)
[2021-06-15] MEDS: tamsulosin 0.4 mg Capsule PO (08:16)
[2021-06-15] MEDS: levoFLOXacin 500 mg Tablet PO (08:17)
[2021-06-15] MEDS: levothyroxine 112 mcg Tablet PO (08:17)
[2021-06-15] MEDS: zolpidem 5 mg Tablet 10 MG PO (10:09)
[2021-06-15 10:59] LABS: Glucose Point of Care 191 mg/dL (70-110)
[2021-06-15 12:00] VITALS: BP 150/68; PULSE 83; RESP 16; TEMP 36.8; O2SAT 97
--- NOTE | 2021-06-15 14:28 | PC.SOCIAL ---
IMM Updated Updated pt on Pg 2 IMM. No questions voiced. Provided pt a copy. Initialed, dated, & timed copy in chart.
--- NOTE | 2021-06-15 15:22 | P.PN_ITS ---
Subjective Subjective: Interval history: No events overnight, patient is stating that he is very agitated that he has not received any sleeping aid yesterday. This morning he is still irritable because of his insomnia, he received Xanax 0.5 mg yesterday and today I have requested Ambien 10 mg p.o., not endorsing active chest pain or shortness of breath, Full tray was at the bedside, patient endorsing anorexia Vitals/I&O/Wt Last Vital Signs Temp 98.3 F 06/15/21 12:00 Pulse 83 06/15/21 12:00 Resp 16 06/15/21 12:00 BP 150/68 06/15/21 12:00 Pulse Ox 97 06/15/21 12:00 06/15/21 06/15/21 06/15/21 06:59 14:59 22:59 Intake Total 360 / 1240 Output Total 400 / 625 Balance -40 / 615 Physical Exam Narrative: EXAM NARRATIVE: Elderly male who was laying supine in his bed distress mood secondary to insomnia Food tray at the bedside, EOMI, PERRLA GCS 15 No neurological deficit S1, S2 with grade 2 systolic murmur No active signs of congestive heart failure Abdomen soft nontender bowel sound present Bilateral breath sounds with mild rhonchi otherwise no acute respiratory distress No joint swelling or signs of cellulitis Data : 06/14/21 06:07 06/14/21 06:07 Micro: Microbiology 06/10/21 09:38 Blood Culture - Final Blood NO GROWTH AFTER 5 DAYS 06/10/21 09:40 Blood Culture - Final Blood NO GROWTH AFTER 5 DAYS 06/13/21 19:30 Enteric Pathogens (PCR) - Final Stool Parasite Antigen Panel - Final A&P Assessment and plan (1) COVID-19: Status: Acute (2) Altered mental status: Status: Acute Qualifiers: Altered mental status type: transient alteration of awareness Qualified Code(s): R40.4 - Transient alteration of awareness (3) Diarrhea: Status: Acute (4) UTI (urinary tract infection): Status: Acute Additional A&P Information COVID-19 pneumonia without hypoxia Currently doing well Finished remdesivir Afebrile Awaiting half-way placement Metabolic encephalopathy: Resolved Patient does show signs of irritability secondary to insomnia, endorsing anorexia We will add mirtazapine UTI: Finished Levaquin course Regular diet Diarrhea: Secondary to COVID-19 C. difficile ruled out DVT prophylaxis Lovenox Full code Awaiting half-way placement, lives alone, due to his COVID-19 infection he might need half-way at [place] Attestations Medical Necessity Statement*: Awaiting half-way placement Time Spent in Patient Care: 30 minutes Coding Level of Care Code Acute Associate [employer] In Nursing for [facility] Fwd Diagnoses COVID-19 U07.1 Altered mental status R40.4 Altered mental status type: transient alteration of awareness Diarrhea R19.7 UTI (urinary tract infection) N39.0
[2021-06-15 16:00] VITALS: BP 129/70; PULSE 79; RESP 14; TEMP 36.8; O2SAT 95
[2021-06-15 16:52] LABS: Glucose Point of Care 113 mg/dL (70-110)
[2021-06-15] MEDS: remdesivir 100 MG in sodium chloride 0.9% (100 ml) 100 ML IV (17:07)
[2021-06-15 20:00] VITALS: BP 129/73; PULSE 73; RESP 18; TEMP 36.8; O2SAT 91
[2021-06-15] MEDS: ALPRAZolam 0.5 mg Tablet PO (20:20)
[2021-06-15] MEDS: enoxaparin 40 mg/0.4 mL Syringe SUBCUT (20:21)
[2021-06-15 22:11] LABS: Glucose Point of Care 229 mg/dL (70-110)
[2021-06-16] VITALS: BP 124/75; PULSE 82; RESP 18; TEMP 37; O2SAT 93
[2021-06-16 04:00] VITALS: BP 117/73; PULSE 75; RESP 18; TEMP 36.6; O2SAT 91
[2021-06-16 07:22] LABS: Glucose Point of Care 122 mg/dL (70-110)
[2021-06-16 08:00] VITALS: BP 125/67; PULSE 69; RESP 26; TEMP 36.8; O2SAT 90
[2021-06-16] MEDS: atorvastatin 40 mg Tablet 80 MG PO (09:22)
[2021-06-16] MEDS: tamsulosin 0.4 mg Capsule PO (09:22)
[2021-06-16] MEDS: levoFLOXacin 500 mg Tablet PO (09:22)
[2021-06-16] MEDS: levothyroxine 112 mcg Tablet PO (09:22)
[2021-06-16 12:00] VITALS: BP 121/65; PULSE 72; RESP 19; TEMP 36.7; O2SAT 90
[2021-06-16 12:01] LABS: Glucose Point of Care 169 mg/dL (70-110)
--- NOTE | 2021-06-16 12:23 | P.DS_ITS ---
Discharge Providers Date of Admission: 06/10/21 02:28 Date of Discharge: June 16, 2021 Attending Provider at Admission: Brittni Ryder MD Attending Provider at Discharge: Samantha Eldridge MD Primary Care Provider: Samantha Berkowitz MD Diagnoses at Discharge Discharge Diagnosis (1) COVID-19: Status: Acute (2) Altered mental status: Status: Acute Qualifiers: Altered mental status type: transient alteration of awareness Qualified Code(s): R40.4 - Transient alteration of awareness (3) Diarrhea: Status: Acute (4) UTI (urinary tract infection): Status: Acute Reason for Visit Reason for Visit: UTI COMPLICATIONS/UNABLE TO WALK/TROUBLE EATING Hospital Course Hospital Course Mr. Zheng is an 80yo man w/ IDDM2, HTN, HLD, CKD stage III, h/o bladder transitional cell carcinoma s/p fulguration, and hypothyroidism, who represented to the ED on 06/09/2021 w/ complaints of generalized fatigue and weakness. The patient initially presented to the ED on 06/07/2021 with complaints of weakness, diarrhea, generalized fatigue, cough shortness of breath and low-grade fever at home. He was noted to be confused at the time and could not answer too many questions. A CXR was done at that time, that showed a left basilar opacity con cerning for pneumonia. UA was concerning for UTI. A rapid COVID-19 test was done, that was negative. Discharged on levofloxacin 500 mg daily for the next 7 days, with the concern that he may still be Covid positive. It was unclear at the time, that he had ever been vaccinated. He represented on 06/09, where he was noted to be hypoglycemic to 40, his UA still concerning for UTI, and his CXR is still showing a mild persistent left basilar opacity concerning for pneumonia. A head CT was done that showed no acute infarct or hemorrhage, but did show old left basal ganglia lacunar infarcts.A CT abdomen and pelvis was done for his complaints of diarrhea, that showed patchy partially visualized groundglass infiltrates in the lower lobes & RML, concerning for COVIID-19 pneumonia. He was retested for COVID-19 COVID-19 PCR, on 06/10, and he was positive the next day, 06/11. Remdesivir was initiated on 06/11. His hospital course has been affected by his poor appetite, requiring D5 half NS, that lead to episodes of hyperglycemia and discontinuation of the D51/2NS, followed by episodes of hypoglycemia due to insulin administration to treat the hyperglycemia and poor p.o. intake due to generalized weakness and malaise. He finished remdesivir regimen, never required oxygen supplementation, his oxygen saturation remained above 90% on room air, his hemoglobin A1c is less than 8, glipizide discontinued and Levemir dose reduced to 10 units down from 32 units. He was given Levaquin for possible superimposed bacterial pneumonia however this was discontinued because of his stable clinical status. C. difficile negative, cultures negative to date, antihypertensive regimen was on hold because of his normotensive range, metabolic encephalopathy improved. Physical Exam Narrative: EXAM NARRATIVE: Patient was laying supine in his bed when entered the room Saturating well on room air Clinically looks slightly dehydrated EOMI, PERRLA GCS 15 No neurological deficit S1, S2 with systolic murmur No active signs of congestive heart failure Abdomen soft nontender bowel sound present Bilateral breath sounds with mild rhonchi otherwise no acute respiratory distress No joint swelling or signs of cellulitis Irritable because of his insomnia Cooperative during my evaluation Discharge Data Data Completed and Pending: Completed Studies During Hospitalization Category Date Time Status CT abdomen pelvis wo con [id number] Rout ine Cat Scan 06/10/21 07:[address] head wo con* 7 [id number] Urgent Cat Scan 06/09/21 20:59 Completed XR chest 1V gary ble [id number] Routine Exams 06/14/21 06:45 Completed XR chest 1V gary ble [id number] Stat Exams 06/09/21 20:59 Completed Labs from last 24 hours 06/16/21 06/16/21 06/15/21 11:06 06:26 19:55 POC Glucose 169 H 122 H 229 H 06/15/21 16:48 POC Glucose 113 H Vitals: Last Vital Signs Temp 98.3 F 06/16/21 08:00 Pulse 69 06/16/21 08:00 Resp 26 H 06/16/21 08:00 BP 125/67 06/16/21 08:00 Pulse Ox 90 06/16/21 08:00 Discharge Plan Discharge Patient Disposition: Xfer SNF Condition: Stable Prescriptions: New zolpidem 5 mg Tablet 10 mg PO BEDTIME PRN (Reason: TROUBLE SLEEPING) 10 Days Qty: 10 RF: 0 Continued (DME) FreeStyle Lite Strips Strip See Rx Instructions .ROUTE .MEDSUPPLY Qty: 100 RF: 5 tamsulosin 0.4 mg capsule 0.4 mg PO DAILY RF: 0 lisinopril 5 mg tablet 5 mg PO DAILY RF: 0 levothyroxine 112 mcg tablet 112 mcg PO DAILY RF: 0 rosuvastatin [Crestor] 40 mg tablet 40 mg PO DAILY RF: 0 Changed Levemir FlexTouch U-100 Insuln 100 unit/mL (3 mL) insulin pen 10 unit SUBCUT DAILY Qty: 0 RF: 0 Discontinued metoprolol succinate 50 mg tablet extended release 24 hr 50 mg PO DAILY RF: 0 glipizide 10 mg tablet extended release 24hr 10 mg PO DAILY RF: 0 levofloxacin 500 mg tablet 500 mg PO DAILY 7 Days RF: 0 Discharge Orders: Discharge Order (Routine); Ordered 06/16/21 Ordered By: Samantha Eldridge Referrals: Samantha Berkowitz MD [Primary Care Provider] - Discharge Diet: Diabetic Discharge Activity: Increase activity as tolerated and Use walker/crutches as instructed Patient Instructions: Zolpidem (By mouth) Discharge Attestations Time Spent in Discharge Care*: less than 30 min Status at Discharge: Cognitive status at discharge: cognitively intact , Behavioral status at discharge: cooperative , Functional status at discharge: other assisted ambulation Overall status at discharge: patient is back to [facility] (formerly [facility]) Quality Metrics Clinical Quality Measures During this hospital stay, did patient experience: None Coding Level of Care Code Acute [facility] FW DC note Diagnoses COVID-19 U07.1 Altered mental status R40.4 Altered mental status type: transient alteration of awareness Diarrhea R19.7 UTI (urinary tract infection) N39.0
== END 2021-06-16 15:18 | disposition skilled nursing facility (03) | DRG 177 ==
LOC: ER 06-10 00:52 → ER IP 06-10 02:29 → MEDSURG 06-10 03:37
PROVIDERS: Internal Medicine; Admitting Provider Student in an Organized Health Care Education/Training Program; Emergency Provider Physician Assistant; PCP Family Medicine; Visit Provider Internal Medicine
DX: U07.1 COVID-19 (principal); J12.82 Pneumonia due to coronavirus disease 2019; G93.41 Metabolic encephalopathy; A08.39 Other viral enteritis; N39.0 Urinary tract infection, site not specified; B96.20 Unspecified Escherichia coli [E. coli] as the cause of diseases classified elsewhere; E11.649 Type 2 diabetes mellitus with hypoglycemia without coma; E11.22 Type 2 diabetes mellitus with diabetic chronic kidney disease; I12.9 Hypertensive chronic kidney disease with stage 1 through stage 4 chronic kidney disease, or unspecified chronic kidney disease; N18.30 Chronic kidney disease, stage 3 unspecified; E03.9 Hypothyroidism, unspecified; N40.1 Benign prostatic hyperplasia with lower urinary tract symptoms; R35.0 Frequency of micturition; R39.11 Hesitancy of micturition; Z85.51 Personal history of malignant neoplasm of bladder; E78.2 Mixed hyperlipidemia; Z87.891 Personal history of nicotine dependence; E86.0 Dehydration; Z86.73 Personal history of transient ischemic attack (TIA), and cerebral infarction without residual deficits; G47.00 Insomnia, unspecified
CPT/HCPCS: 36415; 36416; 70450; 71045; 74176; 80053; 81001; 82533; 82550; 82962; 83036; 83605; 83690; 83735; 84100; 84145; 84436; 84443; 84481; 84484; 85025; 87040; 87077; 87086; 87186; 87426; 87493; 87506; 87635; 93005; 96372; 96374; 97110; 97116; 97161; 97530; 99283; 99285; J1610; J1650; J1815 ×2; J3475; J7030

== ENCOUNTER → 2021-07-23 09:57 | Outpatient (BNVA) | payer MEDICARE, OTHER, SELFPAY | PROVIDERS: PCP Family Medicine; Visit Provider Urology | DX: C67.8 Malignant neoplasm of overlapping sites of bladder (principal); R39.11 Hesitancy of micturition | CPT/HCPCS: 81003 ==

== ENCOUNTER → 2021-10-29 12:36 | Outpatient (BNVA) | payer MEDICARE, OTHER, SELFPAY | PROVIDERS: PCP Family Medicine; Visit Provider Family Medicine | DX: E11.65 Type 2 diabetes mellitus with hyperglycemia (principal); E03.8 Other specified hypothyroidism; E78.2 Mixed hyperlipidemia; I10 Essential (primary) hypertension; Z79.4 Long term (current) use of insulin | CPT/HCPCS: 80053; 80061; 83036; 84443; 85025 ==

== ENCOUNTER → 2022-05-25 12:13 | Outpatient (BNVA) | payer MEDICARE, OTHER, SELFPAY | PROVIDERS: PCP Family Medicine | DX: E03.8 Other specified hypothyroidism (principal); E11.65 Type 2 diabetes mellitus with hyperglycemia; Z79.4 Long term (current) use of insulin; I10 Essential (primary) hypertension; E78.2 Mixed hyperlipidemia; Z12.5 Encounter for screening for malignant neoplasm of prostate; N40.0 Benign prostatic hyperplasia without lower urinary tract symptoms | CPT/HCPCS: 80053; 80061; 83036; 85025; G0103 ==

== ENCOUNTER → 2023-01-01 11:54 | Outpatient (BNVA) | payer MEDICARE, OTHER, SELFPAY | PROVIDERS: PCP Family Medicine; Visit Provider Family Medicine | DX: E03.8 Other specified hypothyroidism (principal); E11.65 Type 2 diabetes mellitus with hyperglycemia; E78.2 Mixed hyperlipidemia; I10 Essential (primary) hypertension; Z12.5 Encounter for screening for malignant neoplasm of prostate; Z79.4 Long term (current) use of insulin; U07.1 COVID-19 | CPT/HCPCS: 80053; 80061; 83036; 84443; 85025; G0103 ==

== ENCOUNTER 2023-04-16 09:55 | Emergency (ER) | payer MEDICARE, OTHER, SELFPAY ==
[2023-04-16 10:01] VITALS: BP 184/67; PULSE 75; RESP 16; TEMP 36.5; O2SAT 98; BMI 25.7
[2023-04-16 10:04] VITALS: PULSE 60; O2SAT 94
--- NOTE | 2023-04-16 10:05 | ED_ITS ---
HPI - Fall General: Chief Complaint: Fall Stated Complaint: fall/back/shoulder pain Time Seen by Provider: 04/16/23 09:56 Source: patient Mode of arrival: ambulatory Limitations: no limitations History of Present Illness: Patient is a very pleasant 82-year-old male who presents to ED today for evaluation following a fall. He states 3 days ago he fell from a ladder at a height of approximately 8 to 10 feet. Patient denies striking his head or LOC. He states he never had pain immediately following the fall but shortly after began developing some lower back pain. He states pain is not constant but seems to be brought on with certain movements rotation of his back as well as rolling over in bed. Is not having any radicular symptoms into his lower extremities. Denies abdominal pain. Patient denies any other injury sustained during the fall. Triage note mentions some left shoulder discomfort however patient denies this to me. 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 MD complaint: fall Onset (ago): day(s) Fall from: from height (distance) (8-10 feet) Fall witnessed: yes, by family Place fall occurred: home Loss of consciousness: None Prolonged down time: no Symptoms prior to fall: none Context: tripped/slipped Location of injury: back Severity: moderate Associated symptoms-after fall: Reports no associated symptoms; Denies abdominal pain, chest pain, headache(s), hematuria, lightheadedness or neck pain Review of Systems Eyes: Denies: change in vision, blurry vision, photophobia, eye discharge, floaters or seeing flashes ENMT: Denies: throat pain, odynophagia, ear or mastoid pain, ear discharge, nasal discharge, epistaxis or sinus pain Card: Denies: chest pain, palpitations, lightheadedness, syncope or pre- syncope Resp: Denies: dyspnea or pain on inspiration GI: Denies: abdominal pain, nausea or vomiting : Denies: flank pain or hematuria Musc: Reports: back pain; Denies: neck pain, extremity pain, extremity swelling, joint pain or limited range of motion Neuro: Denies: headache(s), numbness in extremities, weakness in extremities, sensory changes or dizziness PFS ED PFSH: Medical History Adult onset hypothyroidism Benign prostatic hyperplasia with lower urinary tract symptoms Controlled type 2 diabetes mellitus with hyperglycemia, with long-term current use of insulin HTN, goal below 130/80 Malignant neoplasm of overlapping sites of bladder Mixed hyperlipidemia Suspected 2019-nCoV infection Urinary hesitancy Surgical History History of bladder surgery History of cataract surgery History of hernia repair History of laminectomy Family History Other Cancer Diabetes Hypertension Denies family history of Bleeding disorder Social History Smoking and tobacco status: never smoked Second hand smoke exposure: No Smoking risk assessment/counseling performed?: No Alcohol intake: never Desire information about alcohol rehabilitation?: No Counseling given: No Substance/Drug Use: never Desire information about substance/drug rehabilitation?: No Counseling given: No Caregiver/support person: No Lives independently: Yes Household members: none Housing: House Marital status: / Current occupational status: retired Do you think of yourself as: Straight/Heterosexual Current gender identity: Male Physical Exam Const: COMMON NORMALS: no acute distress, average body habitus, patient orie nted x3, no limitations, healthy appearing, alert and well nourished GENERAL APPEARANCE: cooperative ORIENTATION/CONSCIOUSNESS: Yes awake, Yes oriented to person, Yes oriented to place and Yes oriented to time HENMT: COMMON NORMALS: normocephalic, atraumatic and TM's normal bilaterally HEAD & SCALP: normal to inspection, normocephalic and atraumatic; no Russo's sign, no hematoma and no raccoon eyes FACE & SINUS: normal facial exam TYMPANIC MEMBRANE: TM's normal bilaterally MOUTH: other (no intraoral injuries noted) Eye: COMMON NORMALS: Equal, round and reactive pupils present and EOMs intact bilaterally GENERAL EYE: appearance normal, both eyes and all related structures and normal light reflex PUPIL: Yes Equal, round and reactive pupils present DIRECT OPHTHALMOSCOPY: Yes normal light reflex Neck/C-Spine: COMMON NORMALS: full ROM GENERAL: Yes normal visual inspection CERVICAL SPINE: Yes cervical ROM normal, No pain with cervical ROM, No Cervical spine tenderness, No step off deformity and No Paracervical muscle tenderness Chest: COMMONS NORMALS: normal inspection of the chest and normal palpation of entire chest wall Resp: COMMON NORMALS: normal respiratory effort and clear to auscultation bilaterally AUSCULTATION: clear to auscultation bilaterally Cardio: COMMON NORMALS: regular rate and regular rhythm RATE: regular rate RHYTHM: regular rhythm GI: COMMON NORMALS: Normal to inspection, nondistended, normoactive bowel s ounds present, Soft to palpation, non-tender, No hepatosplenomegaly present and no masses INSPECTION: Yes normal to inspection and No abdominal wall ecchymosis AUSCULTATION: Yes normoactive bowel sounds PALPATION: Yes Soft to palpation and Yes No hepatosplenomegaly present : COMMON NORMALS: Yes no CVA tenderness BLADDER/KIDNEY EXAM: Yes no CVA tenderness Back/Pelvis: COMMON NORMALS: no CVA tenderness and thoracic and lumbar spine normal to inspection THORACIC SPINE/UPPER BACK: Yes normal to inspection, Yes thoracic ROM normal, No thoracic spinal tenderness and No paraspinal muscle tenderness LUMBAR SPINE/LOWER BACK: Yes ROM limited, Yes lumbar spinal tenderness, No paraspinal muscle tenderness, No paraspinal muscle spasm and Yes straight leg raise negative bilaterally PELVIS: Yes buttocks normal SACROILIAC JOINTS: Yes SI joints normal SACRUM: no tenderness COCCYX: no tenderness Extremity: COMMON NORMALS: normal to inspection, full ROM, capillary refill normal, no joint enlargement, no clubbing, cyanosis or edema, no calf tenderness and no pedal edema GENERAL: Yes normal exam except as noted Neuro: EMIR COMA SCALE: document GCS findings Emir coma scale eye opening: Spontaneous Emir coma scale verbal response: Orientated Emir coma scale motor response: Obey commands [place] coma scale total score: 15 COMMON NORMALS: patient oriented x3, CN's II-XII intact bilaterally, moves all extremities, no focal motor deficits, no sensory deficits noted and gait normal SENSORIUM/ORIENTATION: Yes alert, Yes oriented to person, Yes oriented to place and Yes oriented to time SPEECH: speech normal GAIT: Yes Normal gait present Skin: COMMON NORMALS: no rashes or lesions noted GENERAL SKIN EXAM: no rashes or lesions noted TRAUMA: no lacerations or abrasions Course Vital Signs: Vital signs: Vital Signs Temperature 97.7 F 04/16/23 10:01 Pulse Rate 60 04/16/23 10:04 Respiratory Rate 16 04/16/23 10:01 Blood Pressure 184/67 04/16/23 10:01 Pulse Oximetry 94 04/16/23 10:04 Oxygen Delivery Me thod Room Air 04/16/23 10:04 MDM - Fall Medical Decision Making Patient has a compression fracture at T12 and a transverse process fracture at L1. He will be placed in a TLSO brace from physical therapy and I will get him set up with Dr. Vu for follow-up. Lab Data Radiology Impressions Lumbar Spine CT 04/16/23 10:15 IMPRESSION: 1. Acute T12 compression fracture with very minimal bulging of the posterior superior endplate. No cord compression. Fracture extends through both the superior and inferior endplates. 2. Nondisplaced acute RIGHT L1 transverse process fracture. 3. Chronic anterior wedging of L3 and L4. 4. Components of central, subarticular recess and foraminal stenosis from L3-4 to L5-S1 as above. Most severe stenosis at L4-5. 5. Prior laminectomy on the LEFT at L5-S1. Discharge Plan Discharge Patient Disposition: Home Clinical Impression: Compression fracture of T12 vertebra Qualifiers: Encounter type: initial encounter Qualified Code(s): S22.080A - Wedge compression fracture of T11-T12 vertebra, initial encounter for closed fracture Fracture of transverse process of lumbar vertebra Qualifiers: Encounter type: initial encounter Fracture type: closed Qualified Code(s): S32.009A - Unspecified fracture of unspecified lumbar vertebra, initial encounter for closed fracture Condition: Stable Prescriptions: New hydrocodone-acetaminophen 5-325 mg tablet 1 tab PO Q6H PRN (Reason: pain) Qty: 14 0RF No Action ICaps AREDS 14,320-226-200 gkcu-pp-vqne capsule 1 cap PO DAILY Levemir FlexTouch U-100 Insuln 100 unit/mL (3 mL) insulin pen 10 unit SUBCUT DAILY Qty: 15 2RF Rx Instructions: 340B (DME) FreeStyle Lite Strips Strip See Rx Instructions .ROUTE .MEDSUPPLY Qty: 100 5RF Rx Instructions: 3 times day as needed rosuvastatin 40 mg tablet 40 mg PO DAILY Qty: 30 0RF lisinopril 10 mg tablet See Rx Instructions .ROUTE .COMPLEX Qty: 30 0RF Dose Instruction: TAKE ONE TABLET BY MOUTH DAILY. Rx Instructions: TAKE ONE TABLET BY MOUTH DAILY. glipizide 10 mg tablet extended release 24hr 10 mg PO DAILY 90 Days Qty: 90 0RF levothyroxine 112 mcg tablet See Rx Instructions .ROUTE .COMPLEX Qty: 90 1RF Dose Instruction: TAKE ONE TABLET BY MOUTH DAILY Rx Instructions: TAKE ONE TABLET BY MOUTH DAILY metoprolol succinate 50 mg tablet extended release 24 hr 50 mg PO DAILY 90 Days Qty: 90 1RF tamsulosin 0.4 mg capsule 0.4 mg PO DAILY 90 Days Qty: 90 1RF Discharge Orders: Discharge ED (Routine); Ordered 04/16/23 Ordered By: Mary Verdin Referrals: Jaydon Vu DO [Physician] - Samantha Berkowitz MD [Primary Care Provider] - Patient Instructions: Vertebral Compression Fracture (ED), Transverse Process Fracture (ED), Opioid Safety, Pain Management Activity Restrictions/Additional Instructions: As we discussed case management should contact you shortly to set you up with your follow-up appointment with Dr. Vu/orthopedic radiator specialist. Coding Level of Care Code ED Vibratory Pile Driver for Katia Cantor
--- NOTE | 2023-04-16 10:15 | CT_ITS ---
WS: [id number] CT LUMBAR SPINE, noncontrast. HISTORY: fall, back pain TECHNIQUE: Contiguous 2.0 mm axial imaging are performed. Sagittal and coronal reformats are submitte d and reviewed. All CT scans at [facility] use at least one of these dose optimization techni ques: automated exposure control; mA and/or kV adjustment per patient size (includes targeted exams w here dose is matched to clinical indication); or iterative reconstruction. IV contrast: None DLP: 698.32 mGy.cm COMPARISON: 06/10/2021 Straightening of the normal lumbar lordosis. Stable concave deformities involving the superior endpla rosa of L3 and L4. Large anterior bridging osteophytes throughout the lumbar spine. Acute nondisplaced fracture involving the very distal RIGHT L1 transverse process. T12: Acute fracture extending through the superior and inferior endplates with mild loss of height. F racture extends to the posterior vertebral body and also the anterior vertebral body. There is very m inimal bulging of the posterior superior endplate of T12. No significant cord compression. Fracture e xtends through the base of the osteophyte along the inferior anterior endplate. Fracture does not ariana ear to extend into the posterior elements. Bilateral facet joint arthritis at T11-12 and T12-L1. L1-2: Moderate bilateral facet arthritis with mild LEFT subarticular recess and foraminal stenosis. L2-3: Osteophytic ridging and disc bulging and moderate facet arthritis. Mild osteophyte encroachment upon the LEFT exiting L2 nerve root. L3-4: Marked facet joint arthritis with osteophytic ridging. Moderate central, bilateral subarticular recess and mild foraminal stenosis. L4-5: Marked osteophytic ridging and annular disc bulging with ligamentum flavum and facet arthritis. Moderate to severe central, bilateral subarticular recess and foraminal stenosis. L5-S1: Osteophytic ridging with central disc protrusion. Osteophytes and disc disease encroach upon t he S1 nerve roots. Mild central stenosis. Most significant encroachment upon the LEFT S1 nerve root. There is a LEFT laminectomy defect. Mild atherosclerosis abdominal aorta. Mild ectasia. Indeterminate bilateral renal masses. These may b e cysts or complex cysts. Additional nonobstructing LEFT renal calcification. Similar to prior noncon trast CT of 06/10/2021. CT/CT lumbar spine wo con* [id number] IMPRESSION: 1. Acute T12 compression fracture with very minimal bulging of the posterior s uperior endplate. No cord compression. Fracture extends through both the superi or and inferior endplates. 2. Nondisplaced acute RIGHT L1 transverse process fracture. 3. Chronic anterior wedging of L3 and L4. 4. Components of central, subarticular recess and foraminal stenosis from L3-4 to L5-S1 as above. Most severe stenosis at L4-5. 5. Prior laminectomy on the LEFT at L5-S1.
[2023-04-16 12:06] VITALS: PULSE 61; O2SAT 94
--- NOTE | 2023-04-16 12:45 | DCPLANNER ---
Addendum entered by Sabiha Kidd 04/26/23 11:29: Patient had a follow up appointment at ortho - patient did attend appointment. Addendum entered by Sabiha Kidd 04/18/23 06:15: Patient has a follow up appointment scheduled for Thursday, April 20, [address] Vu at ortho. Original Note: manager of regulatory affairs had message to schedule a follow up appointment for patient with ortho. manager of regulatory affairs sent patients information to the front office staff at ortho. Patients information will be printed and reviewed. Clinic will call patient with appointment information.
== END 2023-04-16 12:56 | disposition home or self-care (01) ==
PROVIDERS: Emergency Provider Physician Assistant; PCP Family Medicine
DX: S22.080A Wedge compression fracture of T11-T12 vertebra, initial encounter for closed fracture (principal); S32.018A Other fracture of first lumbar vertebra, initial encounter for closed fracture; Z79.4 Long term (current) use of insulin; Z79.84 Long term (current) use of oral hypoglycemic drugs; I10 Essential (primary) hypertension; E11.9 Type 2 diabetes mellitus without complications; E78.2 Mixed hyperlipidemia; Z85.51 Personal history of malignant neoplasm of bladder; W11.XXXA Fall on and from ladder, initial encounter
CPT/HCPCS: 72131; 97760; 99284; L0456

== ENCOUNTER → 2023-04-20 13:38 | Outpatient (BNVA) | payer MEDICARE, OTHER, SELFPAY | PROVIDERS: PCP Family Medicine; Referring Provider Physician Assistant; Visit Provider Orthopaedic Surgery | DX: S22.080A Wedge compression fracture of T11-T12 vertebra, initial encounter for closed fracture (principal); S32.000A Wedge compression fracture of unspecified lumbar vertebra, initial encounter for closed fracture; W11.XXXA Fall on and from ladder, initial encounter | CPT/HCPCS: 72100; 99204 ==

== ENCOUNTER 2023-04-23 16:02 | Outpatient (CLI) | payer MEDICARE, OTHER, SELFPAY ==
--- NOTE | 2023-04-23 16:00 | MRR_ITS ---
PROCEDURE INFORMATION: Exam: MR Thoracic Spine Without Contrast Exam date and time: 04/23/2023 4:23 PM Age: 82 years old Clinical indication: Injury or trauma; Other: Fall from ladder; Blunt trauma (contusions or hematomas); Injury date: 04/06/23; Prior surgery; Surgery date: 6+ months; Surgery type: Hernia, bladder, laminectomy; Additional info: Compression fractures due to fall, please schedule for urgent mri-preferably on a Wednesday due to TECHNIQUE: Imaging protocol: Magnetic resonance imaging of the thoracic spine without contrast. COMPARISON: CT lumbar spine wo con* [id number] 04/16/2023 10:54 AM FINDINGS: Bones/joints: Mild T12 compression fracture with moderate marrow edema and minimal retropulsion. Minimal T11 lower endplate compression with minimal edema. Old-appearing moderate T4 compression. Old-appearing minimal T3 compression. Mild T2 compression fracture with mild lower endplate edema. This may be recent compression. L1 compression fracture with mild marrow edema. Known right L1 transverse process fracture is better seen on recent CT. Partially assessed subtle L2 marrow edema. Cxvw-nh-msayysyq diffuse thoracic DDD. Exaggerated upper thoracic kyphosis. Spinal cord: Normal signal. No cord compression. Soft tissues: Unremarkable. Kidneys and ureters: Partially assessed left renal peripelvic cysts and probable hemorrhagic cysts. Other findings: Small hiatal hernia. MR/MR thoracic spin wo con* [id number] IMPRESSION: 1. Multiple acute or subacute minimal to mild compression fractures as described. No high-grade spinal stenosis. Recent ones are present at T12, T11, T2, and T1. There is no high-grade spinal stenosis noted. 2. Known right L1 transverse process fracture is better seen on recent CT. 3. Chronic compressions and other chronic findings above.
--- NOTE | 2023-04-23 16:45 | MRR_ITS ---
PROCEDURE INFORMATION: Exam: MR Lumbar Spine Without Contrast Exam date and time: 04/23/2023 4:46 PM Age: 82 years old Clinical indication: Pain and injury or trauma; Blunt trauma (contusions or hematomas); Other: Mid back pain; Injury date: 04/06/23; Injury details: Fall from ladder; Prior surgery; Surgery date: 6+ months; Surgery type: Hernia bladder laminectomy; Additional info: Compression fracture due to fall, please schedule for urgent mri-preferably on a Wednesday due to TECHNIQUE: Imaging protocol: Magnetic resonance imaging of the lumbar spine without contrast. COMPARISON: CT lumbar spine wo con* [id number] 04/16/2023 10:54 AM FINDINGS: Bones/joints: Known right L1 transverse process fracture is better seen on recent CT. L2 body probable hemangioma. T12 compression fracture detailed on same-day MRI thoracic spine. Moderate old L3 and L4 compressions. Severe diffuse lumbar DDD. Known prior left L5-S1 laminectomy. Spinal cord: No focal mass or lesion noted. L1-L2: No significant disc bulge or herniation. No severe spinal canal stenosis. No significant neural foraminal narrowing. L2-L3: At L2-L3 a small broad-based disc bulge causes mild mass effect. The central canal measures about 11 mm. L3-L4: At L3-L4, a small broad-based disc bulge causes mild mass effect. Central canal measures about 8 mm. L4-L5: At L4-L5 a small broad-based disc bulge causes mild mass effect. Central canal measures about 10 mm. L5-S1: At L5-S1 central canal measures 1.4 cm. Soft tissues: Unremarkable. Kidneys and ureters: Left renal cysts and hemorrhagic cysts likely. MR/MR lumbar spine wo con* [id number] IMPRESSION: 1. Known right L1 transverse process fracture is better seen on recent CT. 2. No unstable or suspicious lumbar spine body fracture. 3. T12 and other thoracic spine fractures, detailed on same-day MRI thoracic spine. 4. Ietq-ut-uaxgrxfx lumbar degenerative change and spondylosis. Gics-as-gdvghdvu L3-L4 spinal stenosis. A few old compressions. Other findings above.
== END 2023-04-23 16:03 | disposition home or self-care (01) ==
LOC: RAD 16:07
PROVIDERS: PCP Family Medicine; Visit Provider Orthopaedic Surgery
DX: S22.080A Wedge compression fracture of T11-T12 vertebra, initial encounter for closed fracture (principal); S32.019A Unspecified fracture of first lumbar vertebra, initial encounter for closed fracture; S22.018A Other fracture of first thoracic vertebra, initial encounter for closed fracture; W19.XXXA Unspecified fall, initial encounter; M47.816 Spondylosis without myelopathy or radiculopathy, lumbar region; M48.061 Spinal stenosis, lumbar region without neurogenic claudication
CPT/HCPCS: 72146; 72148

== ENCOUNTER → 2023-05-04 08:32 | Outpatient (BNVA) | payer MEDICARE, OTHER, SELFPAY | PROVIDERS: PCP Family Medicine; Visit Provider Orthopaedic Surgery | DX: Z01.818 Encounter for other preprocedural examination (principal); Z09 Encounter for follow-up examination after completed treatment for conditions other than malignant neoplasm; Z79.4 Long term (current) use of insulin; E11.65 Type 2 diabetes mellitus with hyperglycemia | CPT/HCPCS: 36415; 80053; 81001; 83036; 85025; 87077; 87086; 87186; 99214 ==

== ENCOUNTER 2023-05-06 05:30 | Outpatient (CLI) | payer MEDICARE, OTHER, SELFPAY | END 2023-05-06 05:31 | disposition home or self-care (01) | LOC: RT 05-07 05:32 | PROVIDERS: PCP Family Medicine; Visit Provider Orthopaedic Surgery | DX: Z01.810 Encounter for preprocedural cardiovascular examination (principal) | CPT/HCPCS: 93005 ==

== ENCOUNTER → 2023-05-11 10:22 | Outpatient (BNVA) | payer MEDICARE, OTHER, SELFPAY | PROVIDERS: PCP Family Medicine; Visit Provider Clinical Nurse Specialist Adult Health | DX: N18.9 Chronic kidney disease, unspecified (principal) | CPT/HCPCS: 80048; 81000; 85025 ==

== ENCOUNTER 2023-05-14 09:33 | Day surgery (SDC) | payer MEDICARE, OTHER, SELFPAY ==
[2023-05-06 08:24] VITALS: BMI 24.4
--- NOTE | 2023-05-06 08:53 | ECG_ITS ---
[facility] Test Date: 2023-05-06 Pat Name: Norm Dee Department: Room: Gender: Male Supervisor Sample Preparation: : 1940 Requested By: Cheryl Alex Order Number: [id number] Shirley MD: Marcus Siddiqui M.D. Measurements Intervals [place] Rate: 66 P: 58 WV: 161 QRS: -15 QRSD: 81 T: 46 QT: 400 QTc: 422 Interpretive Statements SINUS RHYTHM LOW QRS VOLTAGE IN PRECORDIAL LEADS [QRS DEFLECTION < 1.0 mV IN CHEST LEADS] Compared to ECG 06/10/2021 03:03:56 Myocardial infarct finding no longer present Electronically Signed On 05-06-2023 15:42:37 CDT by Marcus Siddiqui M.D. [id number]
--- NOTE | 2023-05-06 09:04 | ANES.PREANE2 ---
Pre-Anesthetic Assessment Height/Weight: Height 1.83 m Weight 81.647 kg Operation Date: 05/14/23 13:20 Proposed Procedures p Kyphoplasty T11-12:72993 X 2,S22.080D(Not Applicable) - Jaydon Vu DO Familial anesthetic complications: None Was Beta Franki taken within 24 hours: Yes Was Clonidine taken within 24 hours: N/A Social No alcohol and No tobacco Exam alert, oriented x 3, clear to auscultation bilaterally and regular rate & rhythm Airway Mallampati: Class III Dentition: false CV/HEM Hypertension Chronic Renal Insufficiency Metabolic Diabetes Mellitus, Hyperlipidemia and Thyroid Disease Anesthetic Plan ASA status: 3 Anesthesia: General Risk of > 500 ml blood loss (7ml/kg in children): No Medications/Allergies Home Medications Medication Instructions Recorded Confirmed Last Taken Type vitamins A,C,N-hose-mvlnda 4,296 1 cap PO DAILY 07/23/21 05/06/23 05/05/23 History mcg-226 mg-90 mg capsule (ICaps AREDS) blood sugar diagnostic (FreeStyle #100 ea 10/14/21 05/05/23 Unknown Rx Lite Strips) rosuvastatin 40 mg tablet 40 mg PO DAILY #30 tabs 12/25/22 05/06/23 05/05/23 Rx metoprolol succinate 50 mg 50 mg PO DAILY 90 days #90 tabs 01/27/23 05/06/23 05/05/23 Rx tablet,extended release 24 hr tamsulosin 0.4 mg capsule 0.4 mg PO DAILY see pharmacy 01/27/23 05/06/23 05/05/23 Rx comments 90 days #90 caps ciprofloxacin HCl 500 mg tablet 500 mg PO BID 7 days #14 tabs 05/05/23 05/06/23 Unknown Rx (Cipro) dapagliflozin 10 mg tablet 10 mg PO QAM #30 tabs 05/05/23 05/06/23 05/05/23 Rx (Farxiga) insulin detemir U-100 100 unit/mL 25 unit SUBCUT DAILY 05/05/23 05/06/23 05/05/23 History (3 mL) subcutaneous pen (Levemir FlexTouch U-100 Insulin) glipizide 10 mg tablet, extended 10 mg PO DAILY 05/06/23 05/06/23 05/05/23 History release 24 hr levothyroxine 112 mcg tablet See Rx Instructions .Route 05/06/23 Unknown Rx .COMPLEX #90 tabs lisinopril 10 mg tablet 10 mg PO DAILY 05/06/23 05/06/23 05/05/23 History Allergies Allergy/AdvReac Type Severity Reaction Status Date / Time No Known Allergies Allergy Verified 05/06/23 08:15 [facility] Anesthesia Medical History Adult onset hypothyroidism Benign prostatic hyperplasia with lower urinary tract symptoms Controlled type 2 diabetes mellitus with hyperglycemia, with long-term current use of insulin HTN, goal below 130/80 Malignant neoplasm of overlapping sites of bladder Mixed hyperlipidemia Suspected 2019-nCoV infection Urinary hesitancy Surgical History History of bladder surgery History of cataract surgery History of hernia repair History of laminectomy Family History Other Cancer Diabetes Hypertension Denies family history of Bleeding disorder Social History Smoking and tobacco status: never smoked Second hand smoke exposure: No Smoking risk assessment/counseling performed?: No Alcohol intake: never Desire information about alcohol rehabilitation?: No Counseling given: No Substance/Drug Use: never Desire information about substance/drug rehabilitation?: No Counseling given: No Caregiver/support person: No Lives independently: Yes Household members: none Housing: House Marital status: / Current occupational status: retired Do you think of yourself as: Straight/Heterosexual Current gender identity: Male Data Anesthesia Cardiac Studies: No Data to Display
[2023-05-14] VITALS (9 sets, daily range): BP systolic 114–151; BP diastolic 62–92; PULSE 66–114; RESP 16–20; TEMP 36.1–36.5; O2SAT 97–100
--- NOTE | 2023-05-14 09:42 | SC_ITS ---
WS: [id number] EXAMINATION: C-arm FL for Kyphoplasty ORDER DATE: 05/14/2023 9:42 AM REASON FOR EXAM: Kyphoplasty T11 and T12 COMPARISON: None available. FLUOROSCOPY TIME: 34 seconds # OF SPOT FILMS: 2 FINDINGS: Radiopaque methylmethacrylate within the vertebral bodies T11 and T12. SC/C-arm FL for Kyphoplasty IMPRESSION: Vertebroplasty T11 and T12.
[2023-05-14 10:21] LABS: Glucose Point of Care 138 mg/dL (70-110)
--- NOTE | 2023-05-14 10:27 | W.PM.OPSUD ---
Surgery/Procedure H&P Update DATE OF PROCEDURE: May 14, 2023 DATE H&P PERFORMED: 05/04/23 H&P UPDATE INFORMATION: I have reviewed H&P completed within last 30 days, I have examined patient prior to procedure and No changes to prior documentation PREOP DIAGNOSIS: T11 and T12 compression fracture PLANNED PROCEDURE: Operation Date: 05/14/23 12:10 Proposed Procedures p Kyphoplasty T11-12 w/biopsy:[id number] X 2,S22.080D(Not Applicable) - Jaydon Vu DO
[2023-05-14] MEDS: sodium chloride 0.9% 1,000 ML 30 ML IV (10:30)
--- NOTE | 2023-05-14 10:47 | P.ANESUD_ITS ---
Pre-Anesthetic Update Pre-Anesthetic Assessment: Date of Surgery/Procedure: 05/14/23 Preop Micaela gnosis: T11 and T12 compression fracture Proposed Procedure: Operation Date: 05/14/23 12:10 Proposed Procedures p Kyphoplasty T11-12 w/biopsy:[id number] X 2,S22.080D(Not Applicable) - Jaydon Vu, DO Any changes to Pre-Anesthetic Assessment?: No Last Intake: Intake Last Liquid Date 05/13/23 Last Liquid Time 23:00 Last Solid Date 05/13/23 Last Solid Time 19:00 Vitals: Temperature 97.7 F 05/14/23 10:04 Temperature Source Temporal Artery S can 05/14/23 10:04 Pulse Rate 114 H 05/14/23 10:04 Respiratory Rate 18 05/14/23 10:04 Blood Pressure 151/77 05/14/23 10:04 Blood Pressure Victorina n 101 05/14/23 10:04 Pulse Oximetry 97 05/14/23 10:04 Oxygen Delivery Me thod Room Air 05/14/23 10:10 Exam: Additional Exam Findings (including area of procedure): Normal cardiopulonary exam Cardiac Studies: No Data to Display
[2023-05-14] MEDS: ceFAZolin 2,000 MG in sodium chloride 0.9% (plus) 50 ML 100 MG IV (11:25)
[2023-05-14] MEDS: lidocaine-epi 1% 20 mL INJ INJECTION (12:05)
[2023-05-14] MEDS: iohexol 300 mg/mL 50 mL Btl XX (12:13)
--- NOTE | 2023-05-14 12:41 | PM.OP ---
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 T11 kyphoplasty 2. T12 kyphoplasty Pathology: T12 bx sent Surgeon: Jaydon Vu [employer] Operator: none Estimated blood loss (mL): 5 Procedure: 1. T11 kyphoplasty 2. T12 kyphoplasty Patient is brought to the operative suite after undergoing anesthesia was placed in the prone position. All areas impingement well-padded. Patient's prepped draped normal sterile fashion. Biplanar x-ray is brought into the OR. Skin incision is made over the T12 level first. The awl was inserted. Followed by the biopsy tube. Biopsy from the tube was then sent to pathology. Then the drill was passed. Followed by the balloon. Balloon was removed. She was brought to the T11 level. The skin incision was made lateral to the left pedicle just like in the T12 level. The awl was inserted. Followed by the drill. Followed by the balloon. Balloon was deflated. Cement was then injected into T11 getting good spread across. And then cement was injected in the T12 again getting good spread across. AP lateral fluoroscopy ensured the cement was in good position. Wounds were irrigated and closed with nylon suture. Sterile dressings were applied and patient was transferred to the PACU in stable condition.
--- NOTE | 2023-05-14 13:04 | ANE.PACU2 ---
Inpatient post-anesthesia follow up: Vital signs: Temperature 97.0 F Pulse Rate 66 Respiratory Rate 16 Blood Pressure 115/62 Pulse Oximetry 99 Oxygen Delivery Me thod Room Air Oxygen Flow Rate 5 Fraction of Inspir ed Oxygen Hydration adequate: Yes Nausea and vomiting: No Pain level: 2 Mental status: Baseline
[2023-05-14] MEDS: HYDROcodone-acetaminophen 5-325 mg Tablet 1 TAB PO (13:26)
== END 2023-05-14 13:50 | disposition home or self-care (01) ==
PROVIDERS: PCP Family Medicine; Visit Provider Orthopaedic Surgery
PROC: (CPT 22513; principal; 2023-05-14 12:10)
DX: S22.080A Wedge compression fracture of T11-T12 vertebra, initial encounter for closed fracture (principal); X58.XXXA Exposure to other specified factors, initial encounter; I12.9 Hypertensive chronic kidney disease with stage 1 through stage 4 chronic kidney disease, or unspecified chronic kidney disease; N18.9 Chronic kidney disease, unspecified; E11.22 Type 2 diabetes mellitus with diabetic chronic kidney disease; E78.2 Mixed hyperlipidemia; E03.9 Hypothyroidism, unspecified; Z79.4 Long term (current) use of insulin; Z79.84 Long term (current) use of oral hypoglycemic drugs
CPT/HCPCS: 22513; 22515; 36416; 76000; 82962; 88307; 88311; J0330; J0690; J1100; J2405; J2704; J3010; J3490; J7030; Q9967

== ENCOUNTER → 2023-05-25 14:31 | Outpatient (BNVA) | payer MEDICARE, OTHER, SELFPAY | PROVIDERS: PCP Family Medicine; Visit Provider Orthopaedic Surgery | DX: Z48.89 Encounter for other specified surgical aftercare (principal) | CPT/HCPCS: 99024 ==

== ENCOUNTER → 2023-09-06 11:25 | Outpatient (BNVA) | payer MEDICARE, OTHER, SELFPAY | PROVIDERS: PCP Family Medicine; Visit Provider Family Medicine | DX: E03.8 Other specified hypothyroidism (principal); I10 Essential (primary) hypertension; E78.2 Mixed hyperlipidemia; E11.9 Type 2 diabetes mellitus without complications; N40.1 Benign prostatic hyperplasia with lower urinary tract symptoms; U07.1 COVID-19; Z12.5 Encounter for screening for malignant neoplasm of prostate | CPT/HCPCS: 80053; 80061; 83036; 84443; 85025; G0103 ==

== ENCOUNTER → 2024-10-10 13:38 | Outpatient (BNVA) | payer MEDICARE, OTHER, SELFPAY | PROVIDERS: PCP Nurse Practitioner Family; Visit Provider Nurse Practitioner Family | DX: U07.1 COVID-19 (principal); E11.65 Type 2 diabetes mellitus with hyperglycemia; Z79.4 Long term (current) use of insulin; E78.2 Mixed hyperlipidemia; E03.8 Other specified hypothyroidism | CPT/HCPCS: 80053; 80061; 83036; 84443; 85025 ==

== ENCOUNTER 2025-01-01 00:44 | Emergency (ER) | payer MEDICARE, OTHER, SELFPAY ==
[2025-01-01] VITALS (13 sets, daily range): BP systolic 137–161; BP diastolic 61–78; PULSE 39–52; RESP 14–35; TEMP 36.4; O2SAT 92–98; BMI 23.7
--- NOTE | 2025-01-01 01:14 | CTR_ITS ---
PROCEDURE INFORMATION: Exam: CT Abdomen And Pelvis With Contrast Exam date and time: 01/01/2025 1:45 AM Age: 84 years old Clinical indication: Bloating; Abdominal pain; Localized; C/O lower abd pain with distention TECHNIQUE: Imaging protocol: Computed tomography of the abdomen and pelvis with contrast. Radiation optimization: All CT scans at this facility use at least one of these dose optimization techniques: automated exposure control; mA and/or kV adjustment per patient size (includes targeted exams where dose is matched to clinical indication); or iterative reconstruction. Contrast material: OMNI 350; Contrast volume: 80 ml; Contrast route: INTRAVENOUS (IV); COMPARISON: 1. CT abdomen pelvis wo con [id number] 06/10/2021 8:14 AM 2. MR lumbar spine wo con* 04/23/2023 4:46 PM RADIATION DOSE METRICS: Total DLP (mGy-cm): 1110.92 FINDINGS: Lungs: Minimal dependent atelectasis at the lung bases. Diaphragm: Small sliding hiatal hernia. Liver: Indeterminate 1.1 cm hypodense lesion in segment 4A of the liver, with questionable eccentric enhancement. Liver otherwise unremarkable. Gallbladder and biliary ducts: Cholelithiasis. No evidence of acute cholecystitis or biliary dilatation. Pancreas: Normal pancreas. No ductal dilation. Spleen: Normal spleen. No splenomegaly. Adrenal glands: Normal adrenal glands. Kidneys and ureters: Multiple simple appearing renal cysts, including left-sided parapelvic cysts. Also a few lesions in the left kidney which are intermediate density, but do not appear appreciably changed in size in comparison to 202, suggesting hemorrhagic and/or proteinaceous cysts. No routine follow-up recommended. No hydronephrosis or obstructing calculus. A 6 mm nonobstructive calculus in the lower pole of the left kidney. Excreted contrast within both renal collecting systems, limiting assessment for smaller nonobstructive calculi. Stomach and bowel: No bowel wall thickening. No bowel obstruction. Appendix: Normal appendix. Intraperitoneal space: No free fluid or free air. Vasculature: Extensive atherosclerotic calcifications. 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 Lymph nodes: No adenopathy. Urinary bladder: Normal urinary bladder. Reproductive: Stable prostatomegaly. Bones/joints: No acute fracture identified. Multiple stable old compression fractures, including T11, T12, L3, and L4, with bone cement from previous kyphoplasty at T11 and T12. Stable old prominent Schmorl's node along the superior endplate of L2. Soft tissues: Stable postoperative changes from previous right inguinal hernia repair. Fat containing left inguinal hernia. CT/CT abdomen pelvis w con* [id number] IMPRESSION: 1. No acute findings. 2. Indeterminate 1.1 cm hypodense lesion in segment 4A of the liver, with questionable eccentric enhancement. In retrospect, likely a similar sized hypodense lesion on the prior noncontrast CT, so favor a benign etiology given lack of interval change. Consider further evaluation with nonemergent liver MRI. 3. Cholelithiasis. No evidence of acute cholecystitis or biliary dilatation. 4. A 6 mm nonobstructive calculus in the lower pole of the left kidney. 5. Stable prostatomegaly. 6. Stable postoperative changes from previous right inguinal hernia repair. 7. Fat containing left inguinal hernia. 8. Multiple stable old compression fractures, including T11, T12, L3, and L4, with bone cement from previous kyphoplasty at T11 and T12. 9. Small sliding hiatal hernia. COMMENTS: Consistent with the [employer]'s Incidental Findings Committee white paper (J Am Hemalatha Radiol 2018): Any incidental renal lesion less than 1 cm or classified as too small to characterize, or any incidental cystic renal lesion characterized as simple-appearing, is likely benign. No follow-up imaging is recommended for these lesions per consensus recommendations based on imaging criteria.
--- NOTE | 2025-01-01 01:26 | W.ED.ABDPA2 ---
HPI - Abdominal Pain General: Chief Complaint: Abdominal Pain Stated Complaint: ABD Pain Time Seen by Provider: 01/01/25 01:26 History of Present Illness: 84-year-old diabetic male patient presenting with abdominal pain and distention since around 8 PM last night. He states it seemed to start on the left side of his belly and is moved to the right. He feels distended. He has been nauseated, no vomiting or diarrhea. No history of belly surgery in this patient he says, although hernia surgeries and bladder surgeries are listed. No blood in the stool. Related Data Home Medications Medication Instructions Recorded Confirmed vitamins A,C,E-ubem-beauyl 4,296 1 cap PO DAILY 07/23/21 10/10/24 mcg-226 mg-90 mg capsule (ICaps AREDS) Previous Rx's Medication Instructions Recorded insulin glargine 100 unit/mL (3 25 unit (0.25 mL) SUBCUT QAM #15 mL 12/15/23 mL) subcutaneous pen (Lantus Solostar U-100 Insulin) Basaglar KwikPen U-100 Insulin 100 25 unit (0.25 mL) SUBCUT QAM #15 mL 12/22/23 unit/mL (3 mL) subcutaneous (insulin glargine) metoprolol succinate 50 mg 50 mg PO DAILY 90 days #90 tabs 07/20/24 tablet,extended release 24 hr blood sugar diagnostic (Blood #100 ea 10/10/24 Glucose Test strips) blood-glucose meter #1 ea 10/10/24 glipizide 10 mg tablet, extended See Rx Instructions .Route 10/10/24 release 24 hr .COMPLEX #90 tabs lancets 31 gauge #100 ea 10/10/24 levothyroxine 112 mcg tablet See Rx Instructions .Route 10/10/24 .COMPLEX #90 tabs lisinopril 10 mg tablet 10 mg PO DAILY #90 tabs 10/10/24 rosuvastatin 40 mg tablet 40 mg PO DAILY #90 tabs 10/10/24 lansoprazole 30 mg capsule,delayed 30 mg PO DAILY #30 caps 01/01/25 release (Prevacid) Allergies Allergy/AdvReac Type Severity Reaction Status Date / Time No Known Allergies Allergy Verified 01/01/25 00:57 [facility] PFSH: Medical History Suspected 2019-nCoV infection Benign prostatic hyperplasia with lower urinary tract symptoms Malignant neoplasm of overlapping sites of bladder Urinary hesitancy Mixed hyperlipidemia Adult onset hypothyroidism HTN, goal below 130/80 Controlled type 2 diabetes mellitus with hyperglycemia, with long-term current use of insulin Surgical History History of bladder surgery History of cataract surgery History of laminectomy History of hernia repair Family History Other Cancer Diabetes Hypertension Denies family history of Bleeding disorder Social History Smoking and tobacco/nicotine status: never used tobacco/nicotine Second hand smoke exposure: No Alcohol intake: never Substance/Drug Use: never Caregiver/support person: No Lives independently: Yes Household members: none Housing: House Marital status: / Current occupational status: retired Do you think of yourself as: Straight/Heterosexual Current gender identity: Male Physical Exam Const: COMMON NORMALS: no acute distress GENERAL APPEARANCE: cooperative and frail appearing HENMT: COMMON NORMALS: normocephalic, atraumatic and Normal external nose present HEAD & SCALP: normocephalic and atraumatic FACE & SINUS: normal facial exam and face symmetric NOSE: Normal external nose present Eye: COMMON NORMALS: Equal, round and reactive pupils present and EOMs intact bilaterally PUPIL: Yes Equal, round and reactive pupils present Neck/C-Spine: GENERAL: Yes trachea midline Chest: CHEST: Yes Symmetrical chest wall rise Resp: COMMON NORMALS: normal respiratory effort, No retractions, No use of accessory muscles and clear to auscultation bilaterally AUSCULTATION: clear to auscultation bilaterally Cardio: COMMON NORMALS: regular rate and regular rhythm RATE: regular rate RHYTHM: regular rhythm GI: INSPECTION: Yes abdominal distension PALPATION: Yes Tenderness to palpation present (GI) (Diffuse) and Yes Guarding due to palpation present (GI) Extremity: COMMON NORMALS: no pedal edema Neuro: EMIR COMA SCALE: document GCS findings Emir coma scale eye opening: Spontaneous Emir coma scale verbal response: Orientated Emir coma scale motor response: Obey commands [place] coma scale total score: 15 SENSORY EXAM: Yes extremities (intact) Psych: COMMON NORMALS: speech normal SPEECH: Yes normal speech Skin: COMMON NORMALS: no rashes or lesions noted GENERAL SKIN EXAM: no rashes or lesions noted Course Vital Signs: Vital signs: Vital Signs Temperature 97.5 F L 01/01/25 00:51 Pulse Rate 45 L 01/01/25 04:53 Respiratory Rate 22 H 01/01/25 04:53 Blood Pressure 137/61 01/01/25 04:53 Pulse Oximetry 96 01/01/25 04:53 Oxygen Delivery Me thod Room Air 01/01/25 00:51 MDM - Abdominal Pain Medical Decision Making Creatinine is 1.5. Otherwise laboratory is not remarkable. CT shows no acute findings. There are multiple chronic findings. Patient is bradycardic, down to 40-42 while sleeping. 50s while awake. Rhythm is sinus. Vitals are otherwise stable. He is given morphine Toradol and a GI cocktail with some improvement. Lab Data 01/01/25 01:40 01/01/25 01:40 Labs/Radiology: Radiology Impressions Abdomen/Pelvis CT 01/01/25 01:14 IMPRESSION: 1. No acute findings. 2. Indeterminate 1.1 cm hypodense lesion in segment 4A of the liver, with questionable eccentric enhancement. In retrospect, likely a similar sized hypodense lesion on the prior noncontrast CT, so favor a benign etiology given lack of interval change. Consider further evaluation with nonemergent liver MRI. 3. Cholelithiasis. No evidence of acute cholecystitis or biliary dilatation. 4. A 6 mm nonobstructive calculus in the lower pole of the left kidney. 5. Stable prostatomegaly. 6. Stable postoperative changes from previous right inguinal hernia repair. 7. Fat containing left inguinal hernia. 8. Multiple stable old compression fractures, including T11, T12, L3, and L4, with bone cement from previous kyphoplasty at T11 and T12. 9. Small sliding hiatal hernia. COMMENTS: Consistent with the [employer]'s Incidental Findings Committee white paper (J Am Hemalatha Radiol 2018): Any incidental renal lesion less than 1 cm or classified as too small to characterize, or any incidental cystic renal lesion characterized as simple-appearing, is likely benign. No follow-up imaging is recommended for these lesions per consensus recommendations based on imaging criteria. Laboratory Results WBC 6.86 10^3/uL (3.29-11.43) 01/01/25 01:40 RBC 4.51 10^6/uL (3.85-5.65) 01/01/25 01:40 Hgb 13.10 g/dL (11.27-16.99) 01/01/25 01:40 Hct 40.8 % (37-53) 01/01/25 01:40 MCV 90.5 fl (82-101) 01/01/25 01:40 MCH 29.0 pg (27-33) 01/01/25 01:40 MCHC 32.1 g/dL (30-55) 01/01/25 01:40 RDW 14.3 % (12.1-15.1) 01/01/25 01:40 Plt Count 186 10^3/cmm (157-399) 01/01/25 01:40 MPV 9.5 fL (7.4-10.4) 01/01/25 01:40 Neut % (Auto) 70.6 % 01/01/25 01:40 Lymph % (Auto) 20.3 % 01/01/25 01:40 Emery % (Auto) 6.7 % 01/01/25 01:40 Eos % (Auto) 1.5 % 01/01/25 01:40 Baso % (Auto) 0.6 % 01/01/25 01:40 Neut # (Auto) 4.85 10^3/uL (1.8-7.7) 01/01/25 01:40 Lymph # (Auto) 1.4 10^3/uL (0.8-4.8) 01/01/25 01:40 Emery # (Auto) 0.5 10^3/uL (0.2-0.9) 01/01/25 01:40 Eos # (Auto) 0.1 10^3/uL (0.0-0.8) 01/01/25 01:40 Baso # (Auto) 0.0 10^3/uL (0.0-0.1) 01/01/25 01:40 Nucleated RBC % (auto) 0 % 01/01/25 01:40 Nucleated RBCs # 0.0 /100WBC 01/01/25 01:40 Sodium 136 mmol/L (136-145) 01/01/25 01:40 Potassium 3.7 mmol/L (3.5-5.1) 01/01/25 01:40 Chloride 98 mmol/L (98-107) 01/01/25 01:40 Carbon Dioxide 28 mmol/L (22-29) 01/01/25 01:40 Anion Gap 13.7 (5-19) 01/01/25 01:40 BUN 18 mg/dL (8-23) 01/01/25 01:40 Creatinine 1.5 mg/dL (0.7-1.2) H 01/01/25 01:40 GFR Calculation Not Reportable 01/01/25 01:40 Glucose 158 mg/dL (65-115) H 01/01/25 01:40 Calculated Osmolality 287 mOsm/kg (285-295) 01/01/25 01:40 Lactic Acid 1.1 mmol/L (0.5-2.2) 01/01/25 01:40 Calcium 8.9 mg/dL (8.5-10.5) 01/01/25 01:40 Total Bilirubin 0.3 mg/dL (0.15-1.2) 01/01/25 01:40 AST 26 U/L (0-40) 01/01/25 01:40 ALT 15 U/L (0-41) 01/01/25 01:40 Alkaline Phosphatase 64 U/L (40-130) 01/01/25 01:40 C-Reactive Protein 3.0 mg/L (0.0-4.9) 01/01/25 01:40 Total Protein 6.8 g/dL (6.6-8.7) 01/01/25 01:40 Albumin 3.9 g/dL (3.5-5.2) 01/01/25 01:40 Globulin 2.9 g/dL (1.3-4.6) 01/01/25 01:40 Lipase 51 U/L (13-60) 01/01/25 01:40 Urine Color Yellow (Yellow) 01/01/25 04:02 Urine Appearance Clear (CLEAR) 01/01/25 04:02 Urine pH 6.0 (5-7) 01/01/25 04:02 Ur Specific [place] 1.074 (1.005-1.030) H 01/01/25 04:02 Urine Protein Trace (Negative) A 01/01/25 04:02 Urine Glucose (UA) Negative (Normal) 01/01/25 04:02 Urine Ketones Negative (Negative) 01/01/25 04:02 Urine Blood Negative (Negative) 01/01/25 04:02 Urine Nitrate Negative (Negative) 01/01/25 04:02 Urine Bilirubin Negative (Negative) 01/01/25 04:02 Urine Urobilinogen 1.0 mg/dL (Negative) 01/01/25 04:02 Ur Leukocyte Esterase Negative (Negative) 01/01/25 04:02 Urine RBC 0-2 /hpf (0-2) 01/01/25 04:02 Urine WBC 0-5 /hpf (0-5) 01/01/25 04:02 Ur Squamous Epith Cells 0-5 /hpf (0-5) 01/01/25 04:02 Amorphous Sediment Not Reportable 01/01/25 04:02 Urine Bacteria None seen /hpf (NONE) 01/01/25 04:02 Hyaline Casts 0.40 /lpf 01/01/25 04:02 All radiology interpretation(s) finalized by discharge Discharge Plan Discharge Patient Disposition: Home Clinical Impression: Abdominal pain Condition: Stable Prescriptions: New lansoprazole [Prevacid] 30 mg capsule,delayed release(DR/EC) 30 mg PO DAILY Qty: 30 0RF No Action ICaps AREDS 14,320-226-200 ywsh-nx-esji capsule 1 cap PO DAILY (DME) blood-glucose meter Misc See Rx Instructions .Route Qty: 1 0RF Rx Instructions: As directed (DME) lancets 31 gauge misc See Rx Instructions .Route Qty: 100 3RF Rx Instructions: As directed (DME) Blood Glucose Test Strip See Rx Instructions .Route Qty: 100 3RF Rx Instructions: As directed rosuvastatin 40 mg tablet 40 mg PO DAILY Qty: 90 1RF lisinopril 10 mg tablet 10 mg PO DAILY Qty: 90 1RF Rx Instructions: TAKE ONE TABLET BY MOUTH DAILY. glipizide 10 mg tablet extended release 24hr See Rx Instructions .ROUTE .COMPLEX Qty: 90 1RF Dose Instruction: TAKE 1 TABLET BY MOUTH DAILY Rx Instructions: TAKE 1 TABLET BY MOUTH DAILY. levothyroxine 112 mcg tablet See Rx Instructions .ROUTE .COMPLEX Qty: 90 1RF Dose Instruction: TAKE ONE TABLET BY MOUTH DAILY Rx Instructions: TAKE ONE TABLET BY MOUTH DAILY insulin glargine [Lantus Solostar U-100 Insulin] 100 unit/mL (3 mL) insulin pen 25 unit SUBCUT QAM Qty: 15 3RF insulin glargine [Basaglar KwikPen U-100 Insulin] 100 unit/mL (3 mL) insulin pen 25 unit SUBCUT QAM Qty: 15 3RF metoprolol succinate 50 mg tablet extended release 24 hr 50 mg PO DAILY 90 Days Qty: 90 1RF Discharge Orders: Discharge ED (Routine); Ordered 01/01/25 Ordered By: Vaibhav Oshea Referrals: Indira Gamez FNP-C [Primary Care Provider] - 1-3 days Patient Instructions: Abdominal Pain (ED), Opioid Safety, Pain Management Activity Restrictions/Additional Instructions: A definite specific cause for your abdominal pain was not found on examination and imaging this morning. Take medication as directed. Call your doctor later this morning for a follow-up visit. Return for vomiting liquids, fever, worsening pain despite treatment, other concerning symptoms. Coding Level of Care Code ED Electrophysiology Tech for Katia Cantor
[2025-01-01 01:46] LABS: Basophils % 0.6 %; Eosinophils # 0.1 10^3/uL (0.0-0.8); Eosinophils % 1.5 %; Hematocrit 40.8 % (37-53); Lymphocytes # 1.4 10^3/uL (0.8-4.8); Lymphocytes % 20.3 %; Mean Corpuscular HGB Conc 32.1 g/dL (30-55); Mean Corpuscular Volume 90.5 fl (82-101); Mean Platelet Volume 9.5 fL (7.4-10.4); Monocytes # 0.5 10^3/uL (0.2-0.9); Monocytes % 6.7 %; Neutrophils # 4.85 10^3/uL (1.8-7.7); Neutrophils % 70.6 %; Nucleated Red Blood Cells % 0 %; Platelet Count 186 10^3/cmm (157-399); Red Blood Count 4.51 10^6/uL (3.85-5.65); Red Cell Distribution Width 14.3 % (12.1-15.1); White Blood Count 6.86 10^3/uL (3.29-11.43)
[2025-01-01] MEDS: iohexol 350 mg/mL 500 mL Btl (per mL) IV (01:47)
[2025-01-01 02:03] LABS: Alanine Aminotransferase 15 U/L (0-41); Albumin Level 3.9 g/dL (3.5-5.2); Alkaline Phosphatase 64 U/L (40-130); Anion Gap 13.7 (5-19); Aspartate Amino Transferase 26 U/L (0-40); Blood Urea Nitrogen 18 mg/dL (8-23); Calcium 8.9 mg/dL (8.5-10.5); Carbon Dioxide 28 mmol/L (22-29); Chloride 98 mmol/L (98-107); Creatinine Clr Calc Pharmacy 39.1558; Globulin 2.9 g/dL (1.3-4.6); Glucose 158 mg/dL (65-115); Lactic Sepsis W/Reflex 1.1 mmol/L (0.5-2.2); Lipase 51 U/L (13-60); Osmolality Calculated 287 mOsm/kg (285-295); Potassium 3.7 mmol/L (3.5-5.1); Sodium 136 mmol/L (136-145); Total Bilirubin 0.3 mg/dL (0.15-1.2); Total Protein 6.8 g/dL (6.6-8.7)
[2025-01-01] MEDS: ondansetron 2 mg/ML SDV 2 mL 4 MG IVP (02:50)
[2025-01-01] MEDS: morphine 4 mg/mL SDV 1 mL 2 MG IVP (02:51)
--- NOTE | 2025-01-01 03:43 | PC.NURSE ---
0300: Dr. Oshea notified of patient's bradycardia. No new orders at this time.
[2025-01-01 04:13] LABS: Bilirubin Urine Negative (Negative); Blood Urine Negative (Negative); Glucose Urine UA Negative (Normal); Ketones Urine Negative (Negative); Leukocyte Esterase Urine Negative (Negative); Nitrate Urine Negative (Negative); Protein Urine Trace (Negative); Urine Appearance Clear (CLEAR); Urine Color Yellow (Yellow)
[2025-01-01 04:15] LABS: Add Urine Microscopic? YES; Bacteria Urine None Seen /hpf; RBC Urine 0-2 /hpf (0-2); Squamous Epithelial Cell Urine 0-5 /hpf (0-5); WBC Urine 0-5 /hpf (0-5)
[2025-01-01] MEDS: ketorolac 30 mg/mL INJ IVP (04:22)
[2025-01-01] MEDS: lidocaine 2% viscous 15 ML, aluminum-mag hydrox-simethicon 30 ML, sucralfate oral liq 1 GM PO (04:23)
[2025-01-01 04:31] LABS: Specific Gravity, Urine 1.074 (1.005-1.030)
== END 2025-01-01 05:10 | disposition home or self-care (01) ==
PROVIDERS: Emergency Provider Emergency Medicine; PCP Nurse Practitioner Family
DX: R10.9 Unspecified abdominal pain (principal); Z79.4 Long term (current) use of insulin; I10 Essential (primary) hypertension; E78.2 Mixed hyperlipidemia; E11.9 Type 2 diabetes mellitus without complications
CPT/HCPCS: 36415; 74177; 80053; 81001; 83605; 83690; 85025; 86140; 96374; 96375; 99285; J1885; J2270; J2405